=== PATIENT | male | born 1975 | race American Indian/Alaskan Native ===

== ENCOUNTER 2016-07-08 08:59 | Inpatient (IN) | payer SELFPAY ==
[2016-07-08] MEDS ORDERED: NITROSTAT SL ONE (09:14)
[2016-07-08] MEDS ORDERED: MORPHINE IV ONE (09:14)
[2016-07-08] MEDS ORDERED: LOPRESSOR IV ONE (09:14)
[2016-07-08] MEDS ORDERED: NITRO-BID 2% TP ONE (09:14)
--- NOTE | 2016-07-08 09:45 | Admit Criteria Form ---
Admission Criteria Documentation: CHEST PAIN Clinical Indications for Admission to Inpatient Care (Place 'X' for any and all applicable criteria): Admission is indicated for chest pain and ANY ONE of the following(1)(2)(3)(4)(5 ): [ ]I. Angina with acute coronary syndrome (Also use Myocardial Infarction or Angina guideline) [ ]II. Hemodynamic instability [ X]III. Angina needing acute intervention as indicated by ALL of the following (11)(12): [X]a) Unstable angina is present as indicated by angina that is ANY ONE of the following: [ ]i) New onset [ ]ii) Nocturnal [X ]iii) Prolonged at rest [ ]iv) Progressive [X ]b) Angina warrants acute intervention as indicated by ANY ONE of the following: [ ]i) Recurrent angina (e.g, not responding as previously to treatment) [ ]ii) Angina at rest or with low-level activities despite initial medical therapy [ ]iii) New or presumably new ST-segment depression on ECG [ ]iv) Signs or symptoms of heart failure (eg, dyspnea, pulmonary edema) [ ]v) New or worsening mitral regurgitation [ ]vi) Hemodynamic instability [ ]vii) Dangerous arrhythmia (eg, sustained ventricular tachycardia) [ ]viii) History of percutaneous coronary intervention within 6 months [ ]ix) History of coronary artery bypass graft surgery [X ]x) VILMA risk score of 2 or greater[A] [ ]xi) History of Diabetes(14) [ ]xii) High-risk cardiac ischemia findings on noninvasive testing (e.g, echocardiogram, treadmill testing, nuclear scan) [ ]xiii) Chronic renal insufficiency (ie, estimated GFR less than 60 mL/min/1.732m) [ ]xiv) Left ventricular ejection fraction less than 40% [ ]IV. Evidence of AZ (eg, cardiac biomarkers positive, ST-segment elevation on ECG) also use Myocardial Infarction Criteria Form. [ ]V. Pulmonary edema [ ]. Respiratory distress [ ]VII. Chest pain indicative of serious diagnosis other than coronary artery disease (eg, aortic dissection) [ ]VIII. Contraindications and/or Inappropriate clinical situations for Observational Care in patients with Chest Pain, when ANY ONE of the following is required: [ ]a) Patient with risk factor for pulmonary embolism, acute coronary syndrome and myocardial infarction (18) [ ]b) Patient with Pulmonary embolism require an average LOS of 4.3 days, therefore emergency department observation management is inappropriate 18,23 [ ]c) Painful condition/s in the elderly, have the highest rate of recidivism after emergency department observation management (10.8%) 20,21,22 [ ]d) Elevated cardiac biomarker requires intensive and exhaustive care (19) [X ]IX. General contraindications and/or Inappropriate clinical situations for Observational Care in patients with Chest Pain, when ANY ONE of the following is required: [ X]a) Prediction of prolongation of LOS based on ANY ONE of the following may be considered as a contraindication for observational care 2, 3, 4, 5, 6, 7, 8, 9, 10, 11 [ ]i) Age > 65 yrs. [X ]ii) Patient arriving by ambulance [ ]iii) Patient with high acuity [ ]iv) Patient requiring vital sign monitoring [ ]v) Patient on IV medication [ ]b) Systolic blood pressures 180mmHg 3,12 [ ]c) Patient with altered mental status including delirium and other alteration of consciousness, (3) [ ]d) Patient whose discharge disposition will be to a long-term home or rehabilitation home should not be managed in Emergency Department Observation Unit. CMS rule requires 3 days hospital stay before such placement. 3,13 [ ]e) Patient with failure to thrive due to broad array of etiologies 3,16,17 [ ]f) Inability to ambulate 3,14 Extended stay beyond goal length of stay may be needed for (1)(28): [ ]a) Specific condition diagnosed after evaluation (eg, pulmonary embolism, aortic dissection) [ ]b) Unstable angina [ ]c) Continued suspicion of acute coronary syndrome with inability to complete needed cardiac evaluation (eg, patient clinically unable to undergo stress testing) [ ]d) Myocardial infarction (Contents from ANGINA and CHEST PAIN clinical indications for admission to inpatient care have been integrated in this form) The original [employer] content created by [employer] has been revised. The portions of the content which have been revised are identified through the use of italic text or in bold, and [employer] has neither reviewed nor approved the modified material. All other unmodified content is copyright [employer]. Please see references footnoted in the original [employer] edition 2016 Admission Criteria Met: Yes
[2016-07-08 09:48] LABS: Eosinophils % (Auto) 0.8 % (0.0-4.3); Hematocrit 46.7 % (35.5-45.6); Hemoglobin 15.5 gm/dl (11.8-15.2); Mean Corpuscular HGB Conc 33 % (32-34); Mean Corpuscular Hemoglobin 30 pg (28-32); Mean Corpuscular Volume 89 fl (84-94); Platelet Count 205 K/mm3 (140-440); Red Blood Count 5.25 M/mm3 (3.65-5.03); Red Cell Distribution Width 13.9 % (13.2-15.2); White Blood Count 7.1 K/mm3 (4.5-11.0)
--- NOTE | 2016-07-08 09:51 | XRay Report ---
Single view chest: Compared to 04/17/15. History: Chest pain. Findings: Normal cardiomediastinal silhouette. Trachea is midline. No consolidation, pneumothorax or pleural effusion. Impression: No acute cardiopulmonary findings.
[2016-07-08 09:56] LABS: INR 1.05 (0.87-1.13)
[2016-07-08 09:57] LABS: Partial Thromboplastin Time 32.5 Sec. (24.2-36.6)
[2016-07-08 10:05] LABS: Creatine Kinase MB 3.2 ng/mL (0.0-4.0)
[2016-07-08 10:06] LABS: Alanine Aminotransferase 66 units/L (7-56); Albumin 4.3 g/dL (3.9-5); Albumin/Globulin Ratio 1.5 %; Alkaline Phosphatase 97 units/L (35-129); BUN/Creatinine Ratio 11.81; Bilirubin,Total 0.5 mg/dL (0.1-1.2); Blood Urea Nitrogen 13 mg/dL (9-20); Carbon Dioxide 23 mmol/L (22-30); Creatine Kinase 637 units/L (55-170); Glucose 92 mg/dL (75-100); Total Protein 7.1 g/dL (6.3-8.2)
[2016-07-08 10:07] LABS: Anion Gap 18 mmol/L; Chloride 103.4 mmol/L (98-107); Potassium 3.8 mmol/L (3.6-5.0); Sodium 141 mmol/L (137-145)
--- NOTE | 2016-07-08 10:08 | Emergency Department Report ---
ED Chest Pain HPI - General Chief Complaint: Chest Pain Stated Complaint: CHEST PAIN Time Seen by Provider: 07/08/16 09:06 Source: patient, EMS Mode of arrival: Stretcher Limitations: No Limitations - History of Present Illness MD Complaint: chest pain -: Gradual Onset: during rest, during exertion Pain Location: substernal, left chest Pain Radiation: RUE, LUE Severity: moderate Severity scale (0 -10): 8 Quality: tightness, heaviness Consistency: intermittent Improves With: nitroglycerin Worsens With: exertion re: nausea Other Symptoms: denies: cough, fever, syncope, rash, acid taste in mouth, leg swelling Treatments Prior to Arrival: aspirin, nitroglycerin Aspirin use within the Past 7 Days: (1) Yes - Related Data On Oral Contraceptives: No Previous Rx's Medication Instructions Recorded Last Taken Type Butalb/Acetaminophen/Caffeine 1 cap PO Q6HR PRN #7 cap 04/17/15 Unknown Rx [Fioricet 50-300-40 mg CAP] Lisinopril [Zestril TAB] 10 mg PO QDAY #30 tablet 05/16/15 Unknown Rx Allergies Allergy/AdvReac Type Severity Reaction Status Date / Time No Known Allergies Allergy Verified 04/17/15 04:42 VILMA score - Vilma Score Age > 65: (0) No Aspirin use within the Past 7 Days: (1) Yes 3 or more CAD Risk Factors: (1) Yes 2 or more Angina events in past 24 hrs: (1) Yes Known CAD with more than 50% Stenosis: (0) No Elevated Cardiac Markers: (0) No ST Deviation Greater than 0.5mm: (0) No VILMA Score: 3 ED Review of Systems ROS: Stated complaint: CHEST PAIN Other details as noted in HPI Constitutional: denies: chills, fever Eyes: denies: eye pain, eye discharge, vision change ENT: denies: ear pain, throat pain Respiratory: denies: cough, shortness of breath, wheezing Cardiovascular: denies: chest pain, palpitations Endocrine: no symptoms reported Gastrointestinal: denies: abdominal pain, nausea, diarrhea Genitourinary: denies: urgency, dysuria Musculoskeletal: denies: back pain, joint swelling, arthralgia Skin: denies: rash, lesions Neurological: denies: headache, weakness, paresthesias Psychiatric: denies: anxiety, depression Hematological/Lymphatic: denies: easy bleeding, easy bruising ED Past Medical Hx - Past Medical History Hx Hypertension: Yes - Social History Smoking Status: Current Every Day Smoker - Medications Home Medications: Home Medications Medication Instructions Recorded Confirmed Last Taken Type Butalb/Acetaminophen/Caffeine 1 cap PO Q6HR PRN #7 cap 04/17/15 Unknown Rx [Fioricet 50-300-40 mg CAP] Lisinopril [Zestril TAB] 10 mg PO QDAY #30 tablet 05/16/15 Unknown Rx ED Physical Exam - General Limitations: No Limitations General appearance: alert, in no apparent distress - Head Head exam: Present: atraumatic, normocephalic - ENT ENT exam: Present: mucous membranes moist - Neck Neck exam: Present: normal inspection - Respiratory Respiratory exam: Present: normal lung sounds bilaterally. Absent: respiratory distress - Cardiovascular Cardiovascular Exam: Present: regular rate, normal rhythm. Absent: systolic murmur, diastolic murmur, rubs, gallop - GI/Abdominal GI/Abdominal exam: Present: soft, normal bowel sounds - Rectal Rectal exam: Present: deferred - Extremities Exam Extremities exam: Present: normal inspection - Back Exam Back exam: Present: normal inspection - Skin Skin exam: Present: warm, dry, intact, normal color. Absent: rash ED Course Vital Signs 07/08/16 07/08/16 07/08/16 09:00 09:04 09:10 Temperature Pulse Rate 72 86 Respiratory 23 16 16 Rate Blood Pressure 148/96 Blood Pressure 158/100 [Left] O2 Sat by Pulse Oximetry 07/08/16 07/08/16 07/08/16 09:11 09:15 09:21 Temperature 98.5 F Pulse Rate 70 75 74 Respiratory 16 16 13 Rate Blood Pressure 172/111 172/111 Blood Pressure 172/111 [Left] O2 Sat by Pulse 100 100 99 Oximetry 07/08/16 07/08/16 07/08/16 09:31 09:41 09:45 Temperature Pulse Rate 79 71 70 Respiratory 11 L 13 Rate Blood Pressure 172/111 172/111 172/111 Blood Pressure [Left] O2 Sat by Pulse 100 98 Oximetry 07/08/16 09:51 Temperature Pulse Rate 71 Respiratory 28 H Rate Blood Pressure 150/102 Blood Pressure [Left] O2 Sat by Pulse 98 Oximetry ED Medical Decision Making - Lab Data Result diagrams: 07/08/16 09:30 07/08/16 09:30 - EKG Data -: EKG Interpreted by Me EKG shows normal: sinus rhythm Rate: normal - EKG Data When compared to previous EKG there are: no significant change Interpretation: no acute changes, unchanged when compared t - Medical Decision Making will admit for chest pain and moderate risk factors /recently dc from another ER , talk to hospitalist and agree with the admission. Critical care attestation.: If time is entered above; I have spent that time in minutes in the direct care of this critically ill patient, excluding procedure time. ED Disposition Clinical Impression: Hypertension, Chest pain Disposition: OP ADMITTED IP TO THIS HOSP Is pt being admited?: Yes Does the pt Need Aspirin: Yes Condition: Stable Instructions: Hypertension (ED), Chest Pain (ED) Referrals: PRIMARY CARE, [Primary Care Provider] - 3-5 Days Time of Disposition: 10:39
[2016-07-08] MEDS ORDERED: DULCOLAX PR PRN (12:46)
[2016-07-08] MEDS ORDERED: MILK OF MAGNESIA PO PRN (12:46)
[2016-07-08] MEDS ORDERED: SODIUM CHLORIDE FLUSH SYRINGE 10 ML IV PRN (12:46)
[2016-07-08] MEDS ORDERED: ZOFRAN IV PRN (12:46)
[2016-07-08] MEDS ORDERED: APRESOLINE IV PRN (12:49)
--- NOTE | 2016-07-08 12:52 | History and Physical Report ---
History of Present Illness Chief complaint: Chest pain History of present illness: Linus is a young man who presents with one-day of chest pain. He describes the pain as tightness in his chest that does not radiate anywhere to 6 out of 10 and it is intermittent and lasts a few minutes and then goes away. It is present at rest and exertion but it is worse with exertion. Denies cough denies shortness of breath denies palpitations. 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) Family history: CAD (father of a heart attack at age 50) Medications and Allergies Allergies Allergy/AdvReac Type Severity Reaction Status Date / Time No Known Allergies Allergy Verified 04/17/15 04:42 Home Medications Medication Instructions Recorded Confirmed Last Taken Type Butalb/Acetaminophen/Caffeine 1 cap PO Q6HR PRN #7 cap 04/17/15 07/08/16 Unknown Rx [Fioricet 50-300-40 mg CAP] Lisinopril [Zestril TAB] 10 mg PO QDAY #30 tablet 05/16/15 07/08/16 Unknown Rx Review of Systems All systems: negative (as stated HPI) Exam - Constitutional Vitals: Temp Pulse Resp BP Pulse Ox 98.5 F 71 28 H 150/102 98 07/08/16 09:15 07/08/16 09:51 07/08/16 09:51 07/08/16 09:51 07/08/16 09:51 General appearance: Present: no acute distress, well-nourished - EENT Eyes: Present: PERRL ENT: hearing intact, clear oral mucosa - Neck Neck: Present: supple, normal ROM - Respiratory Respiratory effort: normal Respiratory: bilateral: CTA - Cardiovascular Heart Sounds: Present: S1 & S2. Absent: rub, click - Extremities Extremities: pulses symmetrical, No edema Peripheral Pulses: within normal limits - Abdominal General gastrointestinal: Present: soft, non-tender, non-distended, normal bowel sounds Male genitourinary: Present: normal - Integumentary Integumentary: Present: clear, warm, dry - Musculoskeletal Musculoskeletal: gait normal, strength equal bilaterally - Psychiatric Psychiatric: appropriate mood/affect, intact judgment & insight - Neurologic Neurologic: CNII-XII intact, moves all extremities Results - Labs CBC & Chem 7: 07/08/16 09:30 03 09:30 Labs: Laboratory Last Values WBC 7.1 K/mm3 (4.5-11.0) 07/08/16 09:30 RBC 5.25 M/mm3 (3.65-5.03) H 07/08/16 09:30 Hgb 15.5 gm/dl (11.8-15.2) H 07/08/16 09:30 Hct 46.7 % (35.5-45.6) H 07/08/16 09:30 MCV 89 fl (84-94) 07/08/16 09:30 MCH 30 pg (28-32) 07/08/16 09:30 MCHC 33 % (32-34) 07/08/16 09:30 RDW 13.9 % (13.2-15.2) 07/08/16 09:30 Plt Count 205 K/mm3 (140-440) 07/08/16 09:30 Lymph % (Auto) 25.0 % (13.4-35.0) 07/08/16 09:30 Irion % (Auto) 12.4 % (0.0-7.3) H 07/08/16 09:30 Eos % (Auto) 0.8 % (0.0-4.3) 07/08/16 09:30 Baso % (Auto) 1.0 % (0.0-1.8) 07/08/16 09:30 Lymph # 1.8 K/mm3 (1.2-5.4) 07/08/16 09:30 Irion # 0.9 K/mm3 (0.0-0.8) H 07/08/16 09:30 Eos # 0.1 K/mm3 (0.0-0.4) 07/08/16 09:30 Baso # 0.1 K/mm3 (0.0-0.1) 07/08/16 09:30 Seg Neutrophils % 60.8 % (40.0-70.0) 07/08/16 09:30 Seg Neutrophils # 4.3 K/mm3 (1.8-7.7) 07/08/16 09:30 PT 13.6 Sec. (12.2-14.9) 07/08/16 09:30 INR 1.05 (0.87-1.13) 07/08/16 09:30 APTT 32.5 Sec. (24.2-36.6) 07/08/16 09:30 Sodium 141 mmol/L (137-145) 07/08/16 09:30 Potassium 3.8 mmol/L (3.6-5.0) 07/08/16 09:30 Chloride 103.4 mmol/L (98-107) 07/08/16 09:30 Carbon Dioxide 23 mmol/L (22-30) 07/08/16 09:30 Anion Gap 18 mmol/L 07/08/16 09:30 BUN 13 mg/dL (9-20) 07/08/16 09:30 Creatinine 1.1 mg/dL (0.8-1.5) 07/08/16 09:30 Estimated GFR > 60 ml/min 07/08/16 09:30 BUN/Creatinine Ratio 11.81 % 07/08/16 09:30 Glucose 92 mg/dL (75-100) 07/08/16 09:30 Calcium 9.0 mg/dL (8.4-10.2) 07/08/16 09:30 Total Bilirubin 0.5 mg/dL (0.1-1.2) 07/08/16 09:30 AST 33 units/L (5-40) 07/08/16 09:30 ALT 66 units/L (7-56) H 07/08/16 09:30 Alkaline Phosphatase 97 units/L (35-129) 07/08/16 09:30 Total Creatine Kinase 637 units/L (55-170) H 07/08/16 09:30 CK-MB (CK-2) 3.2 ng/mL (0.0-4.0) 07/08/16 09:30 CK-MB (CK-2) Rel Index 0.5 (0-4) 07/08/16 09:30 Troponin T < 0.010 ng/mL (0.00-0.029) 07/08/16 09:30 Total Protein 7.1 g/dL (6.3-8.2) 07/08/16 09:30 Albumin 4.3 g/dL (3.9-5) 07/08/16 09:30 Albumin/Globulin Ratio 1.5 % 07/08/16 09:30 - Imaging and Cardiology Chest x-ray: image reviewed (no acute abnormality seen) Assessment and Plan Assessment and plan: 40-year-old male with a past medical history of hypertension who presents with chest pain 1. Chest pain Given family history and risk factors, serial troponins to rule out ACS, nuclear stress test in the morning 2. Accelerated hypertension Optimize medications 3. Tobacco abuse patient was counseled >10 minutes -he was offered nicotine patch and he feels he does not need it. Plan of care discussed with patient/family: Yes
[2016-07-08] MEDS: ZESTRIL PO SCH (13:27)
[2016-07-08] MEDS: MORPHINE IV PRN ×2 (13:48→21:00)
[2016-07-08 14:24] LABS: Urine Drugs of Abuse Note Disclamer
[2016-07-08] MEDS: TYLENOL PO PRN (22:27)
[2016-07-09] MEDS ORDERED: LEXISCAN IV ONE (08:46)
[2016-07-09] MEDS ORDERED: TYLENOL ONE (08:49)
[2016-07-09] MEDS: TYLENOL PO PRN (08:54)
--- NOTE | 2016-07-09 08:58 | Discharge Summary ---
Providers - Providers Date of Admission: 07/08/16 12:46 Date of discharge: 07/09/16 Attending physician: CHINO JORGE MD Primary care physician: MANAGER [employer] Hospitalization Reason for admission: chest pain Condition: Stable Hospital course: Patient is a pleasant 40-year-old male who presents with one-day of chest pain. He describes the pain as tightness in his chest that does not radiate anywhere to 6 out of 10 and it is intermittent and lasts a few minutes and then goes away. It is present at rest and exertion but it is worse with exertion. Denies cough denies shortness of breath denies palpitations. Patient did proceed to a stress test that was negative. He didn't admit to marijuana use which was positive in his urine test. On further physical examination regular. This is some muscular spasm pain for which the patient was treated appropriately for her and is currently clinically stable for discharge. We did provide extensive counseling on the compliance of medication and wait THC abuse. Patient's blood pressure was optimized prior to discharge. Extensive counseling was also provided against tobacco use patient verbalized understanding of risk of continued tobacco use including but not limited to and cancer. Discharge diagnosis * Atypical chest pain likely costochondritis versus musculoskeletal * Hypertensive urgency * Tobacco abuse * Marijuana use Disposition: DISCHARGED TO HOME OR SELFCARE Time spent for discharge: 35 mins Core Measure Documentation - Palliative Care Palliative Care/ Comfort Measures: Not Applicable - Core Measures Any of the following diagnoses?: none - VTE Discharge Requirements Deep Vein Thrombosis/Pulmonary Embolism Present on Admission: No Exam - Physical Exam Narrative exam: VITAL SIGNS: Reviewed. GENERAL: The patient appeared well nourished and normally developed. Vital signs as documented. HEAD: No signs of head trauma. EYES: Pupils are equal. Extraocular motions intact. EARS: Hearing grossly intact. MOUTH: Oropharynx is normal. NECK: No adenopathy, no JVD. CHEST: Chest with clear breath sounds bilaterally. No wheezes, rales, or rhonchi. CARDIAC: Regular rate and rhythm. S1 and S2, without murmurs, gallops, or rubs. VASCULAR: No Edema. Peripheral pulses normal and equal in all extremities. ABDOMEN: Soft, without detectable tenderness. No sign of distention. No rebound or guarding, and no masses palpated. Bowel Sounds normal. MUSCULOSKELETAL: Good range of motion of all major joints. Extremities without clubbing, cyanosis or edema. NEUROLOGIC EXAM: Alert and oriented x 3. No focal sensory or strength deficits. Speech normal. Follows commands. PSYCHIATRIC: Mood normal. SKIN: No rash or lesions. - Constitutional Vitals: Temp Pulse Resp BP Pulse Ox 98.4 F 75 18 153/98 99 07/09/16 04:00 07/09/16 04:00 07/09/16 04:00 07/09/16 04:00 07/09/16 04:00 Plan Activity: advance as tolerated, fall precautions Diet: low fat Special Instructions: smoking cessation Follow up with: PRIMARY CARE, [Primary Care Provider] - 3-5 Days
[2016-07-09] MEDS ORDERED: ECOTRIN PO SCH (10:00)
[2016-07-09] MEDS ORDERED: FLUARIX QUAD 2016-2017(36 MOS+) IM ONE (12:00)
[2016-07-09] MEDS: ZESTRIL PO SCH (13:00)
[2016-07-09 13:24] VITALS: BP 181/99
--- NOTE | 2016-07-09 21:53 | Treadmill Report ---
INDICATION: Chest pain. ORDERING PHYSICIAN: Zach Vitale MD FINDINGS: There is no scintigraphic evidence of myocardial ischemia. The left ventricle is normal in size. There is normal wall motion and wall thickening on gated imaging. The left ventricular ejection fraction was measured at 49%. CONCLUSION: 1. No scintigraphic evidence of myocardial ischemia. 2. Normal left ventricular size and wall motion. 3. Left ventricular ejection fraction measured at 49%. 4. This is a low risk myocardial perfusion study associated with 1 year mortality of less than 1%. JOB# [id number] IVAN/CIRILO
== END 2016-07-09 16:50 | disposition home or self-care (01) | DRG 313 ==
LOC: ED 08:59 → 4A 12:46 → EEVIPCON 12:46 → 4A 14:26
PROVIDERS: ADMIT Internal Medicine; ATTEND Internal Medicine
DX: R07.9 Chest pain, unspecified (principal); I10 Essential (primary) hypertension; F17.210 Nicotine dependence, cigarettes, uncomplicated; G43.909 Migraine, unspecified, not intractable, without status migrainosus; Z79.899 Other long term (current) drug therapy; Z82.49 Family history of ischemic heart disease and other diseases of the circulatory system; Z71.6 Tobacco abuse counseling
CPT/HCPCS: 36415; 71010; 78452; 80053; 80307; 82550; 82553; 84484; 85025; 85610; 85730; 90686; 93005; 93010; 93017; A9502; J0360; J2270; J2785

== ENCOUNTER 2016-07-20 14:36 | Emergency (ER) | payer SELFPAY ==
[2016-07-20] MEDS ORDERED: ZESTRIL PO ONE (18:16)
[2016-07-20] MEDS ORDERED: PERCOCET 5/325 PO ONE (18:16)
--- NOTE | 2016-07-20 18:22 | Emergency Department Report ---
ED General Adult HPI - General Chief complaint: Recheck/Abnormal Lab/Rx Stated complaint: ELEVATED BP/MED REFILL Time Seen by Provider: 07/20/16 18:06 Source: patient Mode of arrival: Ambulatory Limitations: No Limitations - History of Present Illness Initial comments: PT state he is in the process of moving. PT states his packed all of his medication. PT states he can unpack is medication in the next 2-3 weeks. PT states he is out of Lisinopril 20 mg q day, Flexeril, Naprosyn, and Percocet 5/ 325mg. PT states he is on those medications for his right rotator cuff tear from work injury. PT states he is in Physical Therapy at [facility] for his shoulder. MD Complaint: medication refill -: Gradual, days(s) Location: upper extremity (R shoulder ) Severity scale (0 -10): 10 Improves with: medication (percocet ) Worsens with: movement Associated Symptoms: headaches. denies: chest pain, nausea/vomiting, syncope Treatments Prior to Arrival: Aspirin - Related Data Previous Rx's Medication Instructions Recorded Last Taken Type Butalb/Acetaminophen/Caffeine 1 cap PO Q6HR PRN #7 cap 04/17/15 Unknown Rx [Fioricet 50-300-40 mg CAP] Cyclobenzaprine HCl [Flexeril 5 MG 5 mg PO TID PRN #12 tab 07/20/16 Unknown Rx TAB] Lisinopril [Zestril TAB] 20 mg PO QDAY #30 tablet 07/20/16 Unknown Rx Allergies Allergy/AdvReac Type Severity Reaction Status Date / Time No Known Allergies Allergy Verified 07/20/16 15:47 ED Review of Systems ROS: Stated complaint: ELEVATED BP/MED REFILL Other details as noted in HPI Comment: All other systems reviewed and negative Musculoskeletal: as per HPI Neurological: headache ED Past Medical Hx - Past Medical History Hx Hypertension: Yes - Surgical History Past Surgical History?: No - Social History Smoking Status: Current Every Day Smoker Substance Use Type: Prescribed - Medications Home Medications: Home Medications Medication Instructions Recorded Confirmed Last Taken Type Butalb/Acetaminophen/Caffeine 1 cap PO Q6HR PRN #7 cap 15 07/08/16 Unknown Rx [Fioricet 50-300-40 mg CAP] Cyclobenzaprine HCl [Flexeril 5 MG 5 mg PO TID PRN #12 tab 07/20/16 Unknown Rx TAB] Lisinopril [Zestril TAB] 20 mg PO QDAY #30 tablet 07/20/16 Unknown Rx ED Physical Exam - General Limitations: No Limitations General appearance: alert, in no apparent distress - Head Head exam: Present: atraumatic, normocephalic - Eye Eye exam: Present: normal appearance - ENT ENT exam: Present: normal exam - Neck Neck exam: Present: normal inspection, tenderness (R trapezius tenderness ) - Respiratory Respiratory exam: Present: normal lung sounds bilaterally, respiratory distress. Absent: chest wall tenderness - Cardiovascular Cardiovascular Exam: Present: regular rate, normal rhythm, normal heart sounds - Extremities Exam Extremities exam: Present: normal inspection, tenderness (R ant shoulder ) - Back Exam Back exam: Present: normal inspection, full ROM. Absent: CVA tenderness (R), CVA tenderness (L) - Neurological Exam Neurological exam: Present: alert, oriented X3 - Psychiatric Psychiatric exam: Present: normal affect, normal mood - Skin Skin exam: Present: warm, dry, intact ED Course Vital Signs 07/20/16 07/20/16 15:48 18:29 Temperature 98.6 F Pulse Rate 80 64 Respiratory 18 Rate Blood Pressure 151/98 154/106 O2 Sat by Pulse 99 Oximetry - Reevaluation(s) Reevaluation #1: 07/20/16 18:25 PT aware Rx for narcotics will not be given for his chronic pain. PT advised to find his medications. PT also advised to follow up with the MD who has been prescribing his narcotics. - Pulse Oximetry Interpretation Digit-Finger Initial Pulse Oximetry Readin Actions Taken: none ED Medical Decision Making - Differential Diagnosis htn, medication refill, shoulder pain Critical care attestation.: If time is entered above; I have spent that time in minutes in the direct care of this critically ill patient, excluding procedure time. ED Disposition Clinical Impression: Chronic right shoulder pain, Medication refill Hypertension Qualifiers: Hypertension type: essential hypertension Qualified Code(s): I10 - Essential ( primary) hypertension Disposition: DISCHARGED TO HOME OR SELFCARE Is pt being admited?: No Does the pt Need Aspirin: No Condition: Stable Instructions: Hypertension (ED) Additional Instructions: No driving or ETOH after taking flexeril Follow up with PCP in 1 week - recheck your bp at follow up Take OTC Aleve as needed for pain Prescriptions: Cyclobenzaprine HCl [Flexeril 5 MG TAB] 5 mg PO TID PRN #12 tab PRN Reason: Muscle Spasm Lisinopril [Zestril TAB] 20 mg PO QDAY #30 tablet Referrals: [facility] [Outside] - 3-5 Days PRIMARY CARE, [Primary Care Provider] - 3-5 Days Time of Disposition: 18:28
[2016-07-20 18:30] VITALS: BP 154/106
== END 2016-07-20 18:35 | disposition home or self-care (01) ==
LOC: ED 14:36
DX: M25.511 Pain in right shoulder (principal); G89.29 Other chronic pain; Z76.0 Encounter for issue of repeat prescription; I10 Essential (primary) hypertension; F17.200 Nicotine dependence, unspecified, uncomplicated
CPT/HCPCS: 99282

== ENCOUNTER 2016-07-28 13:02 | Emergency (ER) | payer SELFPAY ==
[2016-07-28 14:13] LABS: Basophils % (Auto) 0.9 % (0.0-1.8); Eosinophils % (Auto) 1.8 % (0.0-4.3); Hematocrit 45.8 % (35.5-45.6); Hemoglobin 15.2 gm/dl (11.8-15.2); Mean Corpuscular HGB Conc 33 % (32-34); Mean Corpuscular Hemoglobin 29 pg (28-32); Mean Corpuscular Volume 89 fl (84-94); Platelet Count 177 K/mm3 (140-440); Red Blood Count 5.17 M/mm3 (3.65-5.03); Red Cell Distribution Width 13.6 % (13.2-15.2); White Blood Count 6.4 K/mm3 (4.5-11.0)
[2016-07-28 14:25] LABS: Anion Gap 15 mmol/L; BUN/Creatinine Ratio 14.54; Blood Urea Nitrogen 16 mg/dL (9-20); Calcium 8.8 mg/dL (8.4-10.2); Carbon Dioxide 24 mmol/L (22-30); Chloride 107.7 mmol/L (98-107); Glucose 94 mg/dL (75-100); Sodium 143 mmol/L (137-145)
[2016-07-28] MEDS ORDERED: CATAPRES PO ONE (23:10)
[2016-07-28 23:20] VITALS: BP 190/130
--- NOTE | 2016-07-28 23:50 | Emergency Department Report ---
ED Chest Pain HPI - General Chief Complaint: Chest Pain Stated Complaint: MEDS REFILL/FLUTTERING HEART BEAT Time Seen by Provider: 07/28/16 22:52 Source: patient Mode of arrival: Ambulatory Limitations: No Limitations - History of Present Illness Initial Comments: 40 yo male with a past medical history hypertension presents to the hospital complaints of intermittent left-sided chest pain and continued uncontrolled blood pressure. Patient has episodes of left-sided heart fluttering associated with shortness of breath. Episodes last several seconds and spontaneously resolved. Patient had one episode last night and one this morning and denies any repeat episodes. No aggravating or alleviating factors reported. Patient also expresses concern that his blood pressure is still elevated despite being compliant with lisinopril 20 mg daily. Patient denies calf tenderness, edema, recent travel, history of PE/DVT, or pleuritic chest pain. Patient was recently admitted here July 08 until July 09 for chest pain and had a normal exercise stress test. He has not followed up with primary care doctor since discharge to the lack of insurance. Requesting blood pressure medication adjustment. Patient also presented to the ER on July 20 with request for med refill. - Related Data Previous Rx's Medication Instructions Recorded Last Taken Type Butalb/Acetaminophen/Caffeine 1 cap PO Q6HR PRN #7 cap 04/17/15 07/28/16 Rx [Fioricet 50-300-40 mg CAP] Cyclobenzaprine HCl [Flexeril 5 MG 5 mg PO TID PRN #12 tab 07/20/16 07/28/16 Rx TAB] Lisinopril [Zestril TAB] 20 mg PO QDAY #30 tablet 07/20/16 07/28/16 Rx Allergies Allergy/AdvReac Type Severity Reaction Status Date / Time No Known Allergies Allergy Verified 07/20/16 15:47 VILMA score - Vilma Score Age > 65: (0) No Aspirin use within the Past 7 Days: (1) Yes 3 or more CAD Risk Factors: (1) Yes 2 or more Angina events in past 24 hrs: (1) Yes Known CAD with more than 50% Stenosis: (0) No Elevated Cardiac Markers: (0) No ST Deviation Greater than 0.5mm: (0) No VILMA Score: 3 ED Review of Systems ROS: Stated complaint: MEDS REFILL/FLUTTERING HEART BEAT Other details as noted in HPI Comment: All other systems reviewed and negative Other: Constitutional: No fevers chills Eyes: No eye pain visual changes ENT: No ear pain or throat pain Neck: Denies pain Respiratory: Denies cough wheezing Cardiovascular: Per HPI GI: Denies abdominal pain, nausea, vomiting, diarrhea : Denies dysuria Musculoskeletal: Denies back pain Skin: Denies rash, lesions, erythema Neurologic: Denies headache, numbness, weakness Psychiatric: Denies suicidal ideation, hallucinations ED Past Medical Hx - Past Medical History Hx Hypertension: Yes - Surgical History Past Surgical History?: No - Social History Smoking Status: Never Smoker Substance Use Type: Alcohol - Medications Home Medications: Home Medications Medication Instructions Recorded Confirmed Last Taken Type Butalb/Acetaminophen/Caffeine 1 cap PO Q6HR PRN #7 cap 04/17/15 07/28/16 Rx [Fioricet 50-300-40 mg CAP] Cyclobenzaprine HCl [Flexeril 5 MG 5 mg PO TID PRN #12 tab 07/20/16 07/28/16 Rx TAB] Lisinopril [Zestril TAB] 20 mg PO QDAY #30 tablet 07/20/16 07/28/16 07/28/16 Rx ED Physical Exam - General Limitations: No Limitations - Other Other exam information: General: No limitations, patient is alert in no acute distress Head exam: Atraumatic, normocephalic Eyes exam: Normal appearance, pupils equal reactive to light, extraocular movements intact ENT: Moist mucous membrane, normal oropharynx Neck exam: Normal inspection, full range of motion, no meningismus nontender Respiratory exam: Clear to auscultation bilateral, no wheezes, rales, crackles. Chest wall nontender Cardiovascular: Normal rate and rhythm, normal heart sounds Abdomen: Soft, nondistended, and nontender, with normal bowel sounds, no rebound, or guarding Extremity: Full range of motion normal inspection no deformity and no calf tenderness or edema Back: Normal Inspection, full range of motion, no tenderness Neurologic: Alert, oriented x3, cranial nerves intact, no motor or sensory deficit Psychiatric: normal affect, normal mood Skin: Warm, dry, intact ED Course Vital Signs 07/28/16 07/28/16 07/28/16 13:46 21:36 21:40 Temperature 98.8 F Pulse Rate 78 66 63 Respiratory 16 10 L 24 Rate Blood Pressure 129/102 173/116 Blood Pressure [Right] O2 Sat by Pulse 98 99 99 Oximetry 07/28/16 07/28/16 07/28/16 21:44 21:50 22:00 Temperature Pulse Rate 60 62 Respiratory 21 18 Rate Blood Pressure 175/114 167/117 Blood Pressure 176/111 [Right] O2 Sat by Pulse 99 97 Oximetry 07/28/16 07/28/16 07/28/16 22:10 22:20 22:30 Temperature Pulse Rate 63 81 63 Respiratory 24 16 14 Rate Blood Pressure 167/117 170/118 178/113 Blood Pressure [Right] O2 Sat by Pulse 99 100 100 Oximetry 07/28/16 07/28/16 07/28/16 22:40 22:50 23:00 Temperature Pulse Rate 64 67 63 Respiratory 22 16 23 Rate Blood Pressure 178/113 171/108 171/108 Blood Pressure [Right] O2 Sat by Pulse 98 98 99 Oximetry 07/28/16 07/28/16 23:10 23:19 Temperature Pulse Rate 94 H 94 H Respiratory 17 Rate Blood Pressure 182/71 190/130 Blood Pressure [Right] O2 Sat by Pulse 97 Oximetry - Reevaluation(s) Reevaluation #1: 07/28/16 23:48 I was informed by RN at this time the patient eloped. When I intially spoke to patient and explained the process that he will get a d-dimer which was drawn shortly after my evaluation, if elevated he will need a CT angiogram chest, if negative we will send him home when his blood pressure improves. Patient received clonidine 0.1 mg but did not stay long enough for repeat blood pressure measurement. We also discussed that upon discharge I will be providing information for [facility] since he has been unable to follow-up due to lack of insurance. Patient and significant other at the bedside seemed agreeable with the plan. Howver they left prior to completion of treatment and disposition. D-dimer is pending. Apparently patient and his significant other were arguing prior to leaving the hospital Reevaluation #2: 07/28/16 23:56 D-dimer is returned at this time. D-dimer is elevated 350s. I recommend patient get a CT angiogram of the chest. I attempted to call the number on record [phone] however, the number does not belong to the patient. Patient mentioned during my evaluation that he is not currently working although he is employed since he has not officially gotten a slip saying that he is not employed anymore. For this reason I will instruct charge nurse to send a notice to the home on record that patient needs to return to the hospital for CT angiogram chest to rule out PE given elevated d-dimer level. ED Medical Decision Making - Lab Data Result diagrams: 07/28/16 13:58 07/28/16 13:58 Lab Results 07/28/16 07/28/16 07/28/16 Range/Units 13:58 13:58 18:36 WBC 6.4 (4.5-11.0) K/mm3 RBC 5.17 H (3.65-5.03) M/mm3 Hgb 15.2 (11.8-15.2) gm/dl Hct 45.8 H (35.5-45.6) % MCV 89 (84-94) fl MCH 29 (28-32) pg MCHC 33 (32-34) % RDW 13.6 (13.2-15.2) % Plt Count 177 (140-440) K/mm3 Lymph % (Auto) 33.6 (13.4-35.0) % Hart % (Auto) 11.0 H (0.0-7.3) % Eos % (Auto) 1.8 (0.0-4.3) % Baso % (Auto) 0.9 (0.0-1.8) % Lymph # 2.1 (1.2-5.4) K/mm3 Hart # 0.7 (0.0-0.8) K/mm3 Eos # 0.1 (0.0-0.4) K/mm3 Baso # 0.1 (0.0-0.1) K/mm3 Seg Neutrophils % 52.7 (40.0-70.0) % Seg Neutrophils # 3.4 (1.8-7.7) K/mm3 D-Dimer (0-234) ng/mlDDU Sodium 143 (137-145) mmol/L Potassium 4.0 (3.6-5.0) mmol/L Chloride 107.7 H (98-107) mmol/L Carbon Dioxide 24 (22-30) mmol/L Anion Gap 15 mmol/L BUN 16 (9-20) mg/dL Creatinine 1.1 (0.8-1.5) mg/dL Estimated GFR > 60 ml/min BUN/Creatinine Ratio 14.54 % Glucose 94 (75-100) mg/dL Calcium 8.8 (8.4-10.2) mg/dL Troponin T < 0.010 < 0.010 (0.00-0.029) ng/mL 07/28/16 Range/Units 23:15 WBC (4.5-11.0) K/mm3 RBC (3.65-5.03) M/mm3 Hgb (11.8-15.2) gm/dl Hct (35.5-45.6) % MCV (84-94) fl MCH (28-32) pg MCHC (32-34) % RDW (13.2-15.2) % Plt Count (140-440) K/mm3 Lymph % (Auto) (13.4-35.0) % Hart % (Auto) (0.0-7.3) % Eos % (Auto) (0.0-4.3) % Baso % (Auto) (0.0-1.8) % Lymph # (1.2-5.4) K/mm3 Hart # (0.0-0.8) K/mm3 Eos # (0.0-0.4) K/mm3 Baso # (0.0-0.1) K/mm3 Seg Neutrophils % (40.0-70.0) % Seg Neutrophils # (1.8-7.7) K/mm3 D-Dimer 353.33 H (0-234) ng/mlDDU Sodium (137-145) mmol/L Potassium (3.6-5.0) mmol/L Chloride (98-107) mmol/L Carbon Dioxide (22-30) mmol/L Anion Gap mmol/L BUN (9-20) mg/dL Creatinine (0.8-1.5) mg/dL Estimated GFR ml/min BUN/Creatinine Ratio % Glucose (75-100) mg/dL Calcium (8.4-10.2) mg/dL Troponin T (0.00-0.029) ng/mL - EKG Data -: EKG Interpreted by Me (sinus rhythm rate 76 with sinus arrhythmia) - EKG Data When compared to previous EKG there are: no significant change - Medical Decision Making Patient left prior to completion of the ER evaluation. No signs of acute [place] during ED evaluation in pain appears to be atyhpical D-dimer is elevated 350s. I recommend patient get a CT angiogram of the chest. I attempted to call the number on record [phone] however, the number does not belong to the patient. Patient mentioned during my evaluation that he is not currently working although he is employed since he has not officially gotten a slip saying that he is not employed anymore. For this reason I will instruct charge nurse to send a notice to the home on record that patient needs to return to the hospital for CT angiogram chest to rule out PE given elevated d -dimer level. - Differential Diagnosis atypical chest pain, PE, stable angina, palpitations, arrhythmia Critical Care Time: No Critical care attestation.: If time is entered above; I have spent that time in minutes in the direct care of this critically ill patient, excluding procedure time. ED Disposition Clinical Impression: Chest pain, Elevated d-dimer, Uncontrolled hypertension Disposition: ELOPED Is pt being admited?: No Condition: Stable Time of Disposition: 00:00
--- NOTE | 2016-07-29 00:04 | ED Elopement Review ---
ED Pt Elopement review - Results review Lab results: Laboratory Tests 07/28/16 07/28/16 07/28/16 13:58 13:58 18:36 WBC 6.4 RBC 5.17 H Hgb 15.2 Hct 45.8 H MCV 89 MCH 29 MCHC 33 RDW 13.6 Plt Count 177 Lymph % (Auto) 33.6 Trinity % (Auto) 11.0 H Eos % (Auto) 1.8 Baso % (Auto) 0.9 Lymph # 2.1 Trinity # 0.7 Eos # 0.1 Baso # 0.1 Seg Neutrophils % 52.7 Seg Neutrophils # 3.4 D-Dimer Sodium 143 Potassium 4.0 Chloride 107.7 H Carbon Dioxide 24 Anion Gap 15 BUN 16 Creatinine 1.1 Estimated GFR > 60 BUN/Creatinine Ratio 14.54 Glucose 94 Calcium 8.8 Troponin T < 0.010 < 0.010 07/28/16 23:15 WBC RBC Hgb Hct MCV MCH MCHC RDW Plt Count Lymph % (Auto) Trinity % (Auto) Eos % (Auto) Baso % (Auto) Lymph # Trinity # Eos # Baso # Seg Neutrophils % Seg Neutrophils # D-Dimer 353.33 H Sodium Potassium Chloride Carbon Dioxide Anion Gap BUN Creatinine Estimated GFR BUN/Creatinine Ratio Glucose Calcium Troponin T - Call Back decision Pt Call Back Decision: Call pt to return to ED APPLE (pt needs CT angiogram for elevated ddimer)
== END 2016-07-28 23:39 | disposition left against medical advice (07) ==
LOC: ED 13:02
DX: I10 Essential (primary) hypertension (principal); R07.9 Chest pain, unspecified; R79.1 Abnormal coagulation profile
CPT/HCPCS: 36415; 80048; 84484; 85025; 85379; 93005; 93010; 99284

== ENCOUNTER 2017-03-18 17:27 | Emergency (ER) | payer SELFPAY ==
[2017-03-18] MEDS ORDERED: ZESTRIL PO ONE (17:51)
--- NOTE | 2017-03-18 18:54 | Emergency Department Report ---
ED Medical Clearance HPI - General Chief complaint: Medical Clearance Stated complaint: HYPERTENION Time Seen by Provider: 03/18/17 17:50 Source: patient Mode of arrival: Ambulatory Home medications: Previous Rx's Medication Instructions Recorded Last Taken Type Butalb/Acetaminophen/Caffeine 1 cap PO Q6HR PRN #7 cap 04/17/15 07/28/16 Rx [Fioricet 50-300-40 mg CAP] Cyclobenzaprine HCl [Flexeril 5 MG 5 mg PO TID PRN #12 tab 07/20/16 07/28/16 Rx TAB] Lisinopril [Zestril TAB] 20 mg PO QDAY #30 tablet 07/20/16 07/28/16 Rx Allergies/Adverse reactions: Allergies Allergy/AdvReac Type Severity Reaction Status Date / Time No Known Allergies Allergy Verified 07/20/16 15:47 ED Review of Systems ROS: Stated complaint: HYPERTENION Other details as noted in HPI ED Past Medical Hx - Past Medical History Hx Hypertension: Yes - Surgical History Past Surgical History?: No - Social History Smoking Status: Current Every Day Smoker Substance Use Type: None - Medications Home Medications: Home Medications Medication Instructions Recorded Confirmed Last Taken Type Butalb/Acetaminophen/Caffeine 1 cap PO Q6HR PRN #7 cap 04/17/15 07/28/16 Rx [Fioricet 50-300-40 mg CAP] Cyclobenzaprine HCl [Flexeril 5 MG 5 mg PO TID PRN #12 tab 07/20/16 07/28/16 Rx TAB] Lisinopril [Zestril TAB] 20 mg PO QDAY #30 tablet 07/20/16 07/28/16 07/28/16 Rx ED Physical Exam - General Limitations: No Limitations ED Course Vital Signs 03/18/17 17:41 Temperature 98.6 F Pulse Rate 90 Respiratory 20 Rate Blood Pressure 142/113 O2 Sat by Pulse 98 Oximetry ED Disposition Condition: Stable
--- NOTE | 2017-03-18 18:59 | Emergency Department Report ---
Chief Complaint: Medical Clearance Stated Complaint: HYPERTENION Time Seen by Provider: 03/18/17 17:50 - HPI History of Present Illness: 41-year-old male past medical history hypertension, smoker presents with complaint of elevated blood pressure today. Patient states he took his blood pressure and it was over 140 systolic and over 100 diastolic and had episode of approximately 8-10 minutes of headache this morning. Patient is awake alert and oriented 3 denies any facial paresthesias upper or lower extremity paresthesias denies nausea or vomiting, shortness of breath, palpitations, chest pain or palpitations. - ROS Review of Systems: History of hypertension and erectile dysfunction - Exam Vital Signs: Vital Signs 03/18/17 03/18/17 03/18/17 17:41 17:54 17:55 Temperature 98.6 F Pulse Rate 90 90 83 Respiratory 20 Rate Blood Pressure 142/113 142/114 171/109 O2 Sat by Pulse 98 97 Oximetry Physical Exam: Awake alert and oriented 3 does not appear to be in acute distress, heart S1- S2 lungs clear to auscultation bilaterally, strength 5 over 5 upper and lower extremities MSE screening note: Focused history and physical exam performed. Due to findings the following was ordered: Screening Assessment/Plan/Differential Dx: Hypertension 1- This initial assessment/diagnostic orders/clinical plan/ treatment(s) is/are subject to change based on pt's health status, clinical progression and re- assessment by fellow clinical providers in the ED. Further treatment and workup at subsequent clinical provers discretion. Patient/guardians urged not to elope from ED as their condition may be serious if not clinically assessed and managed. 2-CBC, BMP, EKG, chest x-ray, troponin, UA is screening for hypertension. Patient was symptomatic earlier but is asymptomatic now ED Disposition for MSE Condition: Stable Referrals: PRIMARY CARE, [Primary Care Provider] - 3-5 Days
[2017-03-18 19:39] LABS: Bilirubin,Urine NEG (Negative); Blood,Urine NEG (Negative); Ketones,Urine TR mg/dL (Negative); Leukocyte Esterase,Urine NEG (Negative); Mucus,Urine 2+ /HPF; Nitrite,Urine NEG (Negative)
[2017-03-18 19:44] LABS: Basophils % (Auto) 0.9 % (0.0-1.8); Eosinophils % (Auto) 2.2 % (0.0-4.3); Hematocrit 42.6 % (35.5-45.6); Mean Corpuscular HGB Conc 33 % (32-34); Mean Corpuscular Hemoglobin 30 pg (28-32); Mean Corpuscular Volume 90 fl (84-94); Platelet Count 168 K/mm3 (140-440); Red Blood Count 4.74 M/mm3 (3.65-5.03); Red Cell Distribution Width 13.9 % (13.2-15.2); White Blood Count 5.9 K/mm3 (4.5-11.0)
[2017-03-18 20:02] LABS: Anion Gap 17 mmol/L; BUN/Creatinine Ratio 17; Blood Urea Nitrogen 17 mg/dL (9-20); Calcium 8.4 mg/dL (8.4-10.2); Carbon Dioxide 26 mmol/L (22-30); Chloride 104.1 mmol/L (98-107); Glucose 59 mg/dL (75-100); Potassium 3.7 mmol/L (3.6-5.0); Sodium 143 mmol/L (137-145)
[2017-03-18] MEDS ORDERED: CATAPRES PO ONE (22:03)
--- NOTE | 2017-03-18 23:15 | Emergency Department Report ---
HPI - General Chief Complaint: Medical Clearance Time Seen by Provider: 03/18/17 21:00 - HPI HPI: 41-year-old male past medical history hypertension, smoker presents with complaint of elevated blood pressure today. Patient states he took his blood pressure and it was over 140 systolic and over 100 diastolic and had episode of approximately 8-10 minutes of headache this morning. Patient is awake alert and oriented 3 denies any facial paresthesias upper or lower extremity paresthesias denies nausea or vomiting, shortness of breath, palpitations, chest pain or palpitations. Patient said patient reports headache was episodic and he's had this in the past with elevated blood pressure. Patient is not having any headache currently. He was screened by provider and worked up for CT scan and fears other lab work. Patient came to the hospital to have his blood pressure medication renewed which are lisinopril, amlodipine and hydrochlorothiazide. He said he's been out of his medication for 2 weeks. Patient said that he does not have a primary care physician at present. Patient has been here in the past for medication refill. ED Past Medical Hx - Past Medical History Previous Medical History?: Yes Hx Hypertension: Yes - Surgical History Past Surgical History?: No - Family History Family history: hypertension - Social History Smoking Status: Current Every Day Smoker Substance Use Type: None - Medications Home Medications: Home Medications Medication Instructions Recorded Confirmed Last Taken Type Butalb/Acetaminophen/Caffeine 1 cap PO Q6HR PRN #7 cap 04/17/15 07/28/16 Rx [Fioricet 50-300-40 mg CAP] Cyclobenzaprine HCl [Flexeril 5 MG 5 mg PO TID PRN #12 tab 07/20/16 07/28/16 Rx TAB] Hydrochlorothiazide [HCTZ] 25 mg PO QDAY 30 Days #30 tablet 03/19/17 Unknown Rx Lisinopril [Zestril TAB] 20 mg PO QDAY #30 tablet 03/19/17 Unknown Rx amLODIPine [Norvasc] 10 mg PO DAILY 30 Days #30 tab 03/19/17 Unknown Rx ED Review of Systems ROS: Stated complaint: HYPERTENION Other details as noted in HPI Comment: All other systems reviewed and negative Constitutional: no symptoms reported Eyes: denies: eye pain, vision change ENT: denies: ear pain, throat pain Respiratory: no symptoms reported Cardiovascular: denies: chest pain, palpitations, dyspnea on exertion, edema, syncope, paroxysmal nocturnal dyspnea Musculoskeletal: denies: back pain, joint swelling, arthralgia, myalgia Neurological: headache. denies: weakness, numbness, paresthesias, confusion, abnormal gait, vertigo Physical Exam - Physical Exam Vital Signs: Vital Signs 03/18/17 03/18/17 03/18/17 17:41 17:54 17:55 Temperature 98.6 F Pulse Rate 90 90 83 Respiratory 20 Rate Blood Pressure 142/113 142/114 171/109 O2 Sat by Pulse 98 97 Oximetry General: This is a 41-year-old male well-nourished ,well-developed and nontoxic in appearance Physical Exam: Head: Normocephalic, atraumatic, no abrasion, no bruising and no contusion. Eyes: Biateral pupils equal and reactive to light, bilateral EOM intact.. Bilateral conjunctival and sclera without injection, normal accommodation. No nystagmus Ears: Bilateral TMs pearly weston, bilateral nasal mucosa normal without any drainage. No maxillary or frontal sinus tenderness. No mastoid bone tenderness. Bilateral tract is nontender to palpate Mouth: Moist, no pharyngeal exudate or erythema. Uvula is midline and tongue is normal. Oral airways patent. P Neck: Supple, No Cervical adenopathy, full range of motion and no C-spine tenderness. No swelling or tracheal deviation normal reflexes. No carotid bruit Cardiovascular: S1, S2. Regular rate and rhythm. No murmur. Capillary refill is less then 3 seconds. Lungs: Clear to auscultate bilaterally. No rhonchi, wheezes or rales. No chest wall tenderness MSK: Strength 5/5 in all extremities. No joint deformity or crepitus. Normal inspection. Full range of motion to all extremities Abdomen: Nontender to palpate, soft. No guarding or rebound tenderness. Normal bowel sounds in all quadrants. No hernia, bruit, moderate mass. Extremities: No clubbing, cyanosis or edema. +2 pulses. No neurovascular compromise Neurological: GCS at 15, Pt is alert and oriented 3 speech is clear period. 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 Normal gait. Negative Romberg and no pronator drift. Normal Reflexes. No motor or sensory deficit Back: No vertebral tenderness, no paraspinal tenderness. No saddle anesthesia. Normal inspection. Full range of motion. Ambulates without any difficulties. Cardiovascular: S1, S2. Regular rate and rhythm. No murmur. Capillary refill is less then 3 seconds. Lungs: Clear to auscultate bilaterally. No rhonchi, wheezes or rales. No chest wall tenderness Skin: Clean, dry and intact. No rash or lesions. ED Course Vital Signs 03/18/17 03/18/17 03/18/17 17:41 17:54 17:55 Temperature 98.6 F Pulse Rate 90 90 83 Respiratory 20 Rate Blood Pressure 142/113 142/114 171/109 O2 Sat by Pulse 98 97 Oximetry - Reevaluation(s) Reevaluation #1: 03/19/17 21:00 Patient stable and in no acute distress. Normal neurological exam. Still awaiting in head CT because provider ordered CT of the head because patient was complaining of headache when he came's then with elevated blood pressure. Patient is stable and does not have a headache at present. Reevaluation #2: 03/19/17 23:00 No change in neurological status. Still awaiting head CT result. Patient other lab works are stable and his EKG is stable. Patient was given lisinopril initially which did not take his blood pressure down and so he was given clonidine. Reevaluation #3: 03/19/17 01:47 Blood pressure is still elevated but it's better than initial blood pressure and patient is fine without any headache or other symptoms. CT of the head was normal. ED Medical Decision Making - Lab Data Result diagrams: 03/18/17 19:14 03/18/17 19:14 Lab Results 03/18/17 03/18/17 03/18/17 Range/Units 19:00 19:14 19:14 WBC 5.9 (4.5-11.0) K/mm3 RBC 4.74 (3.65-5.03) M/mm3 Hgb 14.0 (11.8-15.2) gm/dl Hct 42.6 (35.5-45.6) % MCV 90 (84-94) fl MCH 30 (28-32) pg MCHC 33 (32-34) % RDW 13.9 (13.2-15.2) % Plt Count 168 (140-440) K/mm3 Lymph % (Auto) 43.8 H (13.4-35.0) % [place] % (Auto) 11.5 H (0.0-7.3) % Eos % (Auto) 2.2 (0.0-4.3) % Baso % (Auto) 0.9 (0.0-1.8) % Lymph # 2.6 (1.2-5.4) K/mm3 [place] # 0.7 (0.0-0.8) K/mm3 Eos # 0.1 (0.0-0.4) K/mm3 Baso # 0.1 (0.0-0.1) K/mm3 Seg Neutrophils % 41.6 (40.0-70.0) % Seg Neutrophils # 2.5 (1.8-7.7) K/mm3 Sodium 143 (137-145) mmol/L Potassium 3.7 (3.6-5.0) mmol/L Chloride 104.1 (98-107) mmol/L Carbon Dioxide 26 (22-30) mmol/L Anion Gap 17 mmol/L BUN 17 (9-20) mg/dL Creatinine 1.0 (0.8-1.5) mg/dL Estimated GFR > 60 ml/min BUN/Creatinine Ratio 17 % Glucose 59 L (75-100) mg/dL Calcium 8.4 (8.4-10.2) mg/dL Troponin T < 0.010 (0.00-0.029) ng/mL Urine Color Yellow (Yellow) Urine Turbidity Clear (Clear) Urine pH 5.0 (5.0-7.0) Ur Specific [place] 1.035 H (1.003-1.030) Urine Protein 30 mg/dl (Negative) mg/dL Urine Glucose (UA) Neg (Negative) mg/dL Urine Ketones Tr (Negative) mg/dL Urine Blood Neg (Negative) Urine Nitrite Neg (Negative) Urine Bilirubin Neg (Negative) Urine Urobilinogen 4.0 (<2.0) mg/dL Ur Leukocyte Esterase Neg (Negative) Urine WBC (Auto) 1.0 (0.0-6.0) /HPF Urine RBC (Auto) 3.0 (0.0-6.0) /HPF U Epithel Cells (Auto) < 1.0 (0-13.0) /HPF Urine Mucus 2+ /HPF - EKG Data -: EKG Interpreted by Me (attending physician) EKG shows normal: sinus rhythm Rate: normal - EKG Data Interpretation: no acute changes, normal EKG (sinus rhythm at 69) - Radiology Data Radiology results: report reviewed CT of the head without contrast revealed no acute abnormalities - Medical Decision Making This case was discussed with Dr. Meza who agreed with patient's treatment plan after presentation. ED course: Patient here reports that he had episodic headache and that his blood pressure is elevated and he would like to have a refill on his blood pressure medication. He was seen by provider and medical screening done and based on patient report of headache CT of the head was ordered along with other lab work including troponin. Patient was not having any chest pain, shortness of breath, blurred vision or dizziness. He complained of headache to previous provider but reported that his headache was briefly and he was not having any headache. He said that he's been out of his blood pressure medication for a couple weeks and he needs a refill on his medicines. Critical care attestation.: If time is entered above; I have spent that time in minutes in the direct care of this critically ill patient, excluding procedure time. ED Disposition Clinical Impression: Elevated blood pressure reading with diagnosis of hypertension, Encounter for medication refill, Non compliance w medication regimen Episodic headache Qualifiers: Headache type: unspecified Intractability: not intractable Qualified Code(s): R51 - Headache Disposition: DC-01 TO HOME OR SELFCARE Is pt being admited?: No Does the pt Need Aspirin: No Condition: Stable Instructions: Acute Headache (ED), Hypertension (ED) Additional Instructions: Please keep a log of your blood pressure and take to Medical Center that I refer you to. This will be [facility] You need to be monitored by a primary care physician and have your medication refilled and adjusted as needed due to your chronic high blood pressure. If you do not take your blood pressure medication you can develop a stroke, heart attack, kidney disease and this could lead to . Please call [facility] [place] on Tuesday and schedule an appointment for initial visit to manage chronic hypertension. Prescriptions: amLODIPine [Norvasc] 10 mg PO DAILY 30 Days #30 tab Hydrochlorothiazide [HCTZ] 25 mg PO QDAY 30 Days #30 tablet Lisinopril [Zestril TAB] 20 mg PO QDAY #30 tablet Referrals: [facility] [Outside] - 2-3 Days [facility] [Outside] - 2-3 Days Forms: Accompanied Note, Work/School Release Form(ED)
[2017-03-19 00:14] VITALS: BP 154/103
--- NOTE | 2017-03-19 01:12 | Cat Scan Report ---
FINAL REPORT EXAM: CT HEAD/BRAIN WO CON HISTORY: headache 8 hours ago GRAY, Hx of HTN COMPARISON: None available. TECHNIQUE: Axial images obtained skull base through vertex. FINDINGS: No acute intracranial hemorrhage, midline shift or pathologic extra axial fluid collection. Ventricles and cisterns are normal in size and configuration for the patient's age. Lewis-white differentiation preserved. Calvarium grossly intact. Orbits are grossly unremarkable. Mild mucosal thickening the visualized paranasal sinuses. Small retention cyst or polyp right maxillary sinus. Mastoid air cells are clear. IMPRESSION: No grossly acute intracranial abnormality.
== END 2017-03-19 02:03 | disposition home or self-care (01) ==
LOC: ED 17:27
DX: I10 Essential (primary) hypertension (principal); G44.89 Other headache syndrome; F17.210 Nicotine dependence, cigarettes, uncomplicated; Z91.14 Patient's other noncompliance with medication regimen
CPT/HCPCS: 36415; 70450; 80048; 81001; 82962; 84484; 85025; 93005; 93010; 99284

== ENCOUNTER 2017-05-04 06:43 | Emergency (ER) | payer OTHER ==
[2017-05-04 07:55] LABS: Basophils # (Auto) 0.1 K/mm3 (0.0-0.1); Basophils % (Auto) 1.1 % (0.0-1.8); Eosinophils # (Auto) 0.2 K/mm3 (0.0-0.4); Hematocrit 46.6 % (35.5-45.6); Hemoglobin 15.8 gm/dl (11.8-15.2); Lymphocytes # (Auto) 1.6 K/mm3 (1.2-5.4); Lymphocytes % (Auto) 26.9 % (13.4-35.0); Mean Corpuscular HGB Conc 34 % (32-34); Mean Corpuscular Hemoglobin 30 pg (28-32); Mean Corpuscular Volume 90 fl (84-94); Monocytes % (Auto) 15.6 % (0.0-7.3); Platelet Count 182 K/mm3 (140-440); Red Blood Count 5.19 M/mm3 (3.65-5.03); Red Cell Distribution Width 14.4 % (13.2-15.2)
[2017-05-04] MEDS ORDERED: ZOFRAN ODT PO ONE (08:04)
[2017-05-04 08:09] LABS: Alanine Aminotransferase 25 units/L (7-56); Albumin 4.4 g/dL (3.9-5); BUN/Creatinine Ratio 10; Blood Urea Nitrogen 10 mg/dL (9-20); Calcium 9.3 mg/dL (8.4-10.2); Hemolysis Index 5; Lipase 20 units/L (13-60)
--- NOTE | 2017-05-04 08:10 | Emergency Department Report ---
ED General Adult HPI - General Chief complaint: Nausea/Vomiting/Diarrhea Stated complaint: FEVER,VOMITING Time Seen by Provider: 05/04/17 07:26 Source: patient Mode of arrival: Ambulatory Limitations: No Limitations - History of Present Illness Initial comments: Patient is a 41-year-old -[place] male who presents for flulike symptoms , fever n/v/d, cough earpain ,congestion and cough productive yellow 2 days patient has child diagnosed with flu yesterday symptoms include cough fever chills nausea vomiting diarrhea as diarrhea yesterday last nausea vomiting yesterday patient tolerating liquids she has a feeling of generalized malaise and fever Tmax 102 f, oral subjective - Related Data Previous Rx's Medication Instructions Recorded Last Taken Type Butalb/Acetaminophen/Caffeine 1 cap PO Q6HR PRN #7 cap 04/17/15 07/28/16 Rx [Fioricet 50-300-40 mg CAP] Cyclobenzaprine HCl [Flexeril 5 MG 5 mg PO TID PRN #12 tab 07/20/16 07/28/16 Rx TAB] Hydrochlorothiazide [HCTZ] 25 mg PO QDAY 30 Days #30 tablet 03/19/17 Unknown Rx Lisinopril [Zestril TAB] 20 mg PO QDAY #30 tablet 03/19/17 Unknown Rx amLODIPine [Norvasc] 10 mg PO DAILY 30 Days #30 tab 03/19/17 Unknown Rx Azithromycin [Zithromax Z-MAIA] 250 mg PO DAILY #6 tablet 05/04/17 Unknown Rx Codeine Phosphate/Guaifenesin 5 ml PO QID PRN #120 ml 05/04/17 Unknown Rx [Guaifenesin-Codeine Syrup] Ibuprofen 800 mg PO TID PRN #30 tablet 05/04/17 Unknown Rx Oseltamivir [Tamiflu] 75 mg PO BID #10 cap 05/04/17 Unknown Rx Allergies Allergy/AdvReac Type Severity Reaction Status Date / Time No Known Allergies Allergy Verified 07/20/16 15:47 ED Review of Systems ROS: Stated complaint: FEVER,VOMITING Other details as noted in HPI Constitutional: chills, fever, malaise Eyes: denies: eye pain, eye discharge, vision change ENT: ear pain, throat pain, congestion Respiratory: cough. denies: shortness of breath, wheezing Cardiovascular: denies: chest pain, palpitations Endocrine: no symptoms reported Gastrointestinal: as per HPI, nausea, vomiting, diarrhea. denies: constipation Genitourinary: denies: urgency, dysuria, frequency, discharge Musculoskeletal: denies: back pain, joint swelling, arthralgia Skin: denies: rash, lesions Neurological: denies: headache, weakness, paresthesias Psychiatric: denies: anxiety, depression Hematological/Lymphatic: denies: easy bleeding, easy bruising ED Past Medical Hx - Past Medical History Previous Medical History?: Yes Hx Hypertension: Yes - Surgical History Past Surgical History?: No - Social History Smoking Status: Current Every Day Smoker Substance Use Type: Alcohol, Prescribed - Medications Home Medications: Home Medications Medication Instructions Recorded Confirmed Last Taken Type Butalb/Acetaminophen/Caffeine 1 cap PO Q6HR PRN #7 cap 04/17/15 07/28/16 Rx [Fioricet 50-300-40 mg CAP] Cyclobenzaprine HCl [Flexeril 5 MG 5 mg PO TID PRN #12 tab 07/20/16 07/28/16 Rx TAB] Hydrochlorothiazide [HCTZ] 25 mg PO QDAY 30 Days #30 tablet 03/19/17 Unknown Rx Lisinopril [Zestril TAB] 20 mg PO QDAY #30 tablet 03/19/17 Unknown Rx amLODIPine [Norvasc] 10 mg PO DAILY 30 Days #30 tab 03/19/17 Unknown Rx Azithromycin [Zithromax Z-MAIA] 250 mg PO DAILY #6 tablet 05/04/17 Unknown Rx Codeine Phosphate/Guaifenesin 5 ml PO QID PRN #120 ml 05/04/17 Unknown Rx [Guaifenesin-Codeine Syrup] Ibuprofen 800 mg PO TID PRN #30 tablet 05/04/17 Unknown Rx Oseltamivir [Tamiflu] 75 mg PO BID #10 cap 05/04/17 Unknown Rx ED Physical Exam - General Limitations: No Limitations General appearance: alert, in no apparent distress - Head Head exam: Present: atraumatic, normocephalic - Eye Eye exam: Present: normal appearance, PERRL, EOMI Pupils: Present: normal accommodation - Expanded ENT Exam Expanded Ear exam: Present: normal external inspection TM/Canal exam: Erythema: Right TM, Left TM Throat exam: Positive: tonsillar erythema, tonsillomegaly. Negative: tonsillar exudate, R peritonsillar mass, L peritonsillar mass - Neck Neck exam: Present: normal inspection, full ROM. Absent: tenderness, lymphadenopathy, thyromegaly - Respiratory Respiratory exam: Present: normal lung sounds bilaterally. Absent: respiratory distress, wheezes, stridor, chest wall tenderness - Cardiovascular Cardiovascular Exam: Present: regular rate, normal rhythm, normal heart sounds. Absent: systolic murmur, diastolic murmur, rubs, gallop - GI/Abdominal GI/Abdominal exam: Present: soft, normal bowel sounds. Absent: distended, tenderness, guarding, rebound, rigid, mass, bruit, hernia - Rectal Rectal exam: Present: deferred - Extremities Exam Extremities exam: Present: normal inspection - Back Exam Back exam: Present: normal inspection - Neurological Exam Neurological exam: Present: alert, oriented X3 - Psychiatric Psychiatric exam: Present: normal affect, normal mood - Skin Skin exam: Present: warm, dry, intact, normal color. Absent: rash ED Course Vital Signs 05/04/17 07:19 Temperature 98.7 F Pulse Rate 84 Respiratory 16 Rate Blood Pressure 147/95 O2 Sat by Pulse 98 Oximetry ED Medical Decision Making - Lab Data Result diagrams: 05/04/17 07:37 05/04/17 07:37 Laboratory Tests 05/04/17 05/04/17 05/04/17 07:26 07:37 07:37 WBC 6.1 RBC 5.19 H Hgb 15.8 H Hct 46.6 H MCV 90 MCH 30 MCHC 34 RDW 14.4 Plt Count 182 Lymph % (Auto) 26.9 [place] % (Auto) 15.6 H Eos % (Auto) 4.0 Baso % (Auto) 1.1 Lymph # 1.6 [place] # 1.0 H Eos # 0.2 Baso # 0.1 Seg Neutrophils % 52.4 Seg Neutrophils # 3.2 Sodium 142 Potassium 3.4 L Chloride 102.5 Carbon Dioxide 26 Anion Gap 17 BUN 10 Creatinine 1.0 Estimated GFR > 60 BUN/Creatinine Ratio 10 Glucose 96 Calcium 9.3 Total Bilirubin 0.80 AST 25 ALT 25 Alkaline Phosphatase 82 Total Protein 7.1 Albumin 4.4 Albumin/Globulin Ratio 1.6 Lipase 20 Urine Color Yellow Urine Turbidity Clear Urine pH 6.0 Ur Specific [place] 1.018 Urine Protein <15 mg/dl Urine Glucose (UA) Neg Urine Ketones Neg Urine Blood Neg Urine Nitrite Neg Urine Bilirubin Neg Urine Urobilinogen 2.0 Ur Leukocyte Esterase Neg Urine WBC (Auto) < 1.0 Urine RBC (Auto) 4.0 - Medical Decision Making Patient is a 41-year-old -[place] male who presents for flulike symptoms , fever n/v/d, cough ear pressure pain ,congestion and cough productive yellow 2 days patient has child diagnosed with flu yesterday symptoms include cough fever chills nausea vomiting diarrhea as diarrhea yesterday last nausea vomiting yesterday patient tolerating liquids she has a feeling of generalized malaise and fever Tmax 102 f, oral subjective. Exam patient appears uncomfortable , ENT bilateral TM erythema pain with movement nose by a bilateral maxillary sinus pain no obstruction or polyps clear postnasal drip pharynx erythema mild edema no lesions no exudate uvula midline no stridor lungs clear no wheezing no rhonchi or cough noted not productive abdomen is soft nontender , No rebound no fluid shift no bruit no hernia labs: cmp: normal , cbc: normal , ua: normal plan tx for URI, influenza, tamiflu, Zpack, Cheratussin, ibuprofen, pt will follow up with pcp in 2-3 days , pt is currently tolerating po intake without n/v, pt verbalized agreement and understanding of discharge plan. Critical care attestation.: If time is entered above; I have spent that time in minutes in the direct care of this critically ill patient, excluding procedure time. ED Disposition Clinical Impression: URI (upper respiratory infection) Qualifiers: URI type: unspecified viral URI Qualified Code(s): J06.9 - Acute upper respiratory infection, unspecified; B97.89 - Other viral agents as the cause of diseases classified elsewhere; B97.89 - Other viral agents as the cause of diseases classified elsewhere AOM (acute otitis media) Qualifiers: Otitis media type: serous Laterality: bilateral Recurrence: not specified as recurrent Qualified Code(s): H65.03 - Acute serous otitis media, bilateral Disposition: - TO HOME OR SELFCARE Is pt being admited?: No Does the pt Need Aspirin: No Condition: Good Instructions: Upper Respiratory Infection (ED), Otitis Media (ED) Prescriptions: Azithromycin [Zithromax Z-MAIA] 250 mg PO DAILY #6 tablet Codeine Phosphate/Guaifenesin [Guaifenesin-Codeine Syrup] 5 ml PO QID PRN #120 ml PRN Reason: Cough Ibuprofen 800 mg PO TID PRN #30 tablet PRN Reason: pain Oseltamivir [Tamiflu] 75 mg PO BID #10 cap Referrals: HOMER SAUCEDO MD [Staff Physician] - 3-5 Days Forms: Work/School Release Form(ED) Time of Disposition: 08:44
[2017-05-04 08:17] LABS: Bilirubin,Urine NEG (Negative); Blood,Urine NEG (Negative); Color,Urine Yellow (Yellow); Nitrite,Urine NEG (Negative); Protein,Urine <15 mg/dL mg/dL (Negative); WBC,Urine < 1.0 /HPF (0.0-6.0)
[2017-05-04 09:05] VITALS: BP 150/86
== END 2017-05-04 08:55 | disposition home or self-care (01) ==
LOC: ED 06:43
DX: J06.9 Acute upper respiratory infection, unspecified (principal); H65.03 Acute serous otitis media, bilateral; F17.200 Nicotine dependence, unspecified, uncomplicated
CPT/HCPCS: 36415; 80053; 81001; 83690; 85025; 99283; Q0162

== ENCOUNTER 2017-07-11 17:15 | Emergency (ER) | payer OTHER ==
[2017-07-11] MEDS ORDERED: CATAPRES PO ONE (19:59)
[2017-07-11] MEDS ORDERED: TYLENOL PO ONE (19:59)
--- NOTE | 2017-07-11 20:19 | Emergency Department Report ---
HPI - General Chief Complaint: High BP Time Seen by Provider: 07/11/17 19:55 - HPI HPI: Patient reports nausea, headache elevated blood pressure and blurred vision that started this morning and he said he is not having those symptoms anymore. He said he is taking aspirin for headache and it relieved his headache. He said he is out of his blood pressure medication for 2 months to include lisinopril/HCTZ and amlodipine. Blood pressure in triage is 159/104. Patient denies any chest pain or shortness of breath. Denies any vomiting. Denies any back or abdominal pain. He is asymptomatic at present. Patient is requesting a work excuse and also refill on his medication for blood pressure. He said he has not seen a primary care doctor at present. Pain is 0-10 ED Past Medical Hx - Past Medical History Previous Medical History?: Yes Hx Hypertension: Yes - Surgical History Past Surgical History?: No - Family History Family history: hypertension - Social History Smoking Status: Current Every Day Smoker - Medications Home Medications: Home Medications Medication Instructions Recorded Confirmed Last Taken Type Butalb/Acetaminophen/Caffeine 1 cap PO Q6HR PRN #7 cap 04/17/15 07/28/16 Rx [Fioricet 50-300-40 mg CAP] Cyclobenzaprine HCl [Flexeril 5 MG 5 mg PO TID PRN #12 tab 07/20/16 07/28/16 Rx TAB] Azithromycin [Zithromax Z-MAIA] 250 mg PO DAILY #6 tablet 05/04/17 Unknown Rx Codeine Phosphate/Guaifenesin 5 ml PO QID PRN #120 ml 05/04/17 Unknown Rx [Guaifenesin-Codeine Syrup] Ibuprofen 800 mg PO TID PRN #30 tablet 05/04/17 Unknown Rx Oseltamivir [Tamiflu] 75 mg PO BID #10 cap 05/04/17 Unknown Rx Hydrochlorothiazide [HCTZ] 25 mg PO QDAY 30 Days #30 tablet 07/11/17 Unknown Rx Lisinopril [Zestril TAB] 20 mg PO QDAY 30 Days #30 tablet 07/11/17 Unknown Rx amLODIPine [Norvasc] 10 mg PO DAILY 30 Days #30 tab 07/11/17 Unknown Rx ED Review of Systems ROS: Stated complaint: HIGH BLOOD PRESSURE Other details as noted in HPI Comment: All other systems reviewed and negative Constitutional: no symptoms reported Eyes: denies: eye pain, eye discharge, vision change Cardiovascular: denies: chest pain, palpitations, dyspnea on exertion, orthopnea , edema, syncope, paroxysmal nocturnal dyspnea Gastrointestinal: denies: abdominal pain, nausea, vomiting, diarrhea Genitourinary: denies: hematuria Musculoskeletal: denies: back pain, joint swelling, arthralgia, myalgia Skin: denies: rash Neurological: denies: headache, weakness, numbness, paresthesias, confusion, abnormal gait, vertigo Physical Exam - Physical Exam Vital Signs: Vital Signs 07/11/17 17:22 Temperature 99.2 F Pulse Rate 86 Respiratory 16 Rate Blood Pressure 159/104 O2 Sat by Pulse 96 Oximetry General: This is a 41-year-old male well-nourished well-developed no acute distress. Physical Exam: Head: Normocephalic, atraumatic, no abrasion, no bruising and no contusion. Eyes: Biateral pupils equal and reactive to light, bilateral EOM intact.. Bilateral conjunctival and sclera without injection, normal accommodation. No nystagmus Mouth: Moist, no pharyngeal exudate or erythema. No peritonsillar abscesses. Uvula is midline and oral airways patent. Neck: Supple, No Cervical adenopathy, full range of motion and no C-spine tenderness. No swelling or tracheal deviation normal reflexes Cardiovascular: S1, S2. Regular rate and rhythm. No murmur. Capillary refill is less then 3 seconds. Lungs: Clear to auscultate bilaterally. No rhonchi, wheezes or rales. No chest wall tenderness. No chest contusion. No bruising to chest. MSK: Strength 5/5 in all extremities. No joint deformity or crepitus. Normal inspection. Full range of motion to all extremities. No laceration, abrasion or ecchymotic area noted. Abdomen: Non-tender to palpate in all quadrants, no guarding or rebound tenderness, positive bowel sounds in all quadrants. No CVA tenderness. No hernia, bruit or mass. No rigidity or distention. Extremities: No clubbing, cyanosis or edema. +2 pulses. No neurovascular compromise Skin: Clean, dry and intact. No rash or lesions. Neurological: GCS at 15, Pt is alert and oriented 3 speech is clear. Bilateral hand adventure therapist strong and equal. Normal gait. Negative Romberg and no pronator drift. Normal Reflexes. No motor or sensory deficit Back: No vertebral tenderness, no paraspinal tenderness. Relates 11 to difficulties Psych: Normal mood and behavior ED Course Vital Signs 07/11/17 17:22 Temperature 99.2 F Pulse Rate 86 Respiratory 16 Rate Blood Pressure 159/104 O2 Sat by Pulse 96 Oximetry - Reevaluation(s) Reevaluation #1: 07/11/17 20:45 given clonidine 0.1 mg by mouth and emergency room and Tylenol 650 mg by mouth that was ordered by Dr. Shepherd. ED Medical Decision Making - Medical Decision Making ED course: Patient here reports that he was having in nausea, headache, visual difficulties this morning because he has not taken his blood pressure medication for 2 months. He said he took aspirin this morning and symptoms are relieved. Patient is requesting a refill on his blood pressure medication. He takes lisinopril, and Norvasc and HCTZ. Patient neurologically intact and physical exam is normal. He's requested a work excuse for missing work today. He was given clonidine 0.1 mg in the emergency room for blood pressure 159/104 and Tylenol 650 mg. patient was screened by Dr. Shepherd. Discharged home in stable condition with prescription for amlodipine, HCTZ and lisinopril and to follow-up at [facility] for management of chronic blood pressure Critical care attestation.: If time is entered above; I have spent that time in minutes in the direct care of this critically ill patient, excluding procedure time. ED Disposition Clinical Impression: Elevated blood-pressure reading without diagnosis of hypertension, Medically noncompliant Disposition: DC-01 TO HOME OR SELFCARE Is pt being admited?: No Does the pt Need Aspirin: No Condition: Stable Instructions: DASH Eating Plan (ED), Hypertension (ED) Additional Instructions: He states he put pressure and keep a log and take to primary care visit at [facility] to manage her chronic medical problems Take medication as prescribed The information on diet for high blood pressure Prescriptions: amLODIPine [Norvasc] 10 mg PO DAILY 30 Days #30 tab Hydrochlorothiazide [HCTZ] 25 mg PO QDAY 30 Days #30 tablet Lisinopril [Zestril TAB] 20 mg PO QDAY 30 Days #30 tablet Referrals: [facility] [Outside] - 2-3 Days Forms: Work/School Release Form(ED)
[2017-07-11 21:32] VITALS: BP 164/102
--- NOTE | 2017-07-11 22:26 | Emergency Department Report ---
Chief Complaint: High BP Stated Complaint: HIGH BLOOD PRESSURE Time Seen by Provider: 07/11/17 19:55 - HPI History of Present Illness: The patient is a 41-year-old male presents for evaluation of headache and elevated blood pressure. The patient reports headache and elevated blood pressure since this morning, moderate to severe, and associated with photophobia , dizziness, blurry vision. He states that his symptoms completely resolved prior to my evaluation. He states that he is now completely asymptomatic. The patient denies fever, head injury, neck pain, neck stiffness, smell or taste changes, paresthesias, facial drooping, slurred speech, seizure-like activity, urine or bowel incontinence or retention, or other focal neurological deficit. - Exam Vital Signs: Vital Signs 07/11/17 07/11/17 07/11/17 17:22 20:53 20:57 Temperature 99.2 F 99.4 F Pulse Rate 86 75 75 Respiratory 16 17 Rate Blood Pressure 159/104 163/118 Blood Pressure 163/112 [Right] O2 Sat by Pulse 96 98 Oximetry 07/11/17 21:28 Temperature Pulse Rate 82 Respiratory 16 Rate Blood Pressure Blood Pressure 164/102 [Right] O2 Sat by Pulse 100 Oximetry MSE screening note: Focused history and physical exam performed. Due to findings the following was ordered: ED Disposition for MSE Clinical Impression: Elevated blood-pressure reading without diagnosis of hypertension, Medically noncompliant Disposition: DC-01 TO HOME OR SELFCARE Condition: Stable Instructions: DASH Eating Plan (ED), Hypertension (ED) Additional Instructions: He states he put pressure and keep a log and take to primary care visit at [facility] to manage her chronic medical problems Take medication as prescribed The information on diet for high blood pressure Prescriptions: amLODIPine [Norvasc] 10 mg PO DAILY 30 Days #30 tab Hydrochlorothiazide [HCTZ] 25 mg PO QDAY 30 Days #30 tablet Lisinopril [Zestril TAB] 20 mg PO QDAY 30 Days #30 tablet Referrals: [facility] [Outside] - 2-3 Days Forms: Work/School Release Form(ED)
== END 2017-07-11 21:27 | disposition home or self-care (01) ==
LOC: ED 17:15
DX: I10 Essential (primary) hypertension (principal); F17.200 Nicotine dependence, unspecified, uncomplicated
CPT/HCPCS: 99282

== ENCOUNTER 2017-09-16 16:44 | Emergency (ER) | payer SELFPAY ==
[2017-09-16 17:33] VITALS: BP 149/100
--- NOTE | 2017-09-16 19:00 | Emergency Department Report ---
ED General Adult HPI - General Chief complaint: Animal Bite Stated complaint: TICK BITE Time Seen by Provider: 09/16/17 18:45 Source: patient Mode of arrival: Ambulatory Limitations: No Limitations - History of Present Illness Initial comments: This is a 42-year-old -[place] male who is presenting with a tick bite. Patient states was bitten approximately 2 days ago. Patient states that he has some pain in this area he was able to successfully remove the tick. Patient denies any fevers chills nausea vomiting or diarrhea at this time. Patient also states that he's been out of his blood pressure medicines last several days like to get a refill as well. - Related Data Previous Rx's Medication Instructions Recorded Last Taken Type Butalb/Acetaminophen/Caffeine 1 cap PO Q6HR PRN #7 cap 04/17/15 07/28/16 Rx [Fioricet 50-300-40 mg CAP] Cyclobenzaprine HCl [Flexeril 5 MG 5 mg PO TID PRN #12 tab 07/20/16 07/28/16 Rx TAB] Azithromycin [Zithromax Z-MAIA] 250 mg PO DAILY #6 tablet 05/04/17 Unknown Rx Codeine Phosphate/Guaifenesin 5 ml PO QID PRN #120 ml 05/04/17 Unknown Rx [Guaifenesin-Codeine Syrup] Ibuprofen 800 mg PO TID PRN #30 tablet 05/04/17 Unknown Rx Oseltamivir [Tamiflu] 75 mg PO BID #10 cap 05/04/17 Unknown Rx Hydrochlorothiazide [HCTZ] 25 mg PO QDAY 30 Days #30 tablet 07/11/17 Unknown Rx Doxycycline [Vibramycin CAP] 100 mg PO Q12HR #14 capsule 09/16/17 Unknown Rx Ibuprofen [Motrin] 600 mg PO Q8H PRN #20 tablet 09/16/17 Unknown Rx Lisinopril [Zestril TAB] 20 mg PO QDAY 30 Days #30 tablet 09/16/17 Unknown Rx amLODIPine [Norvasc] 10 mg PO DAILY 30 Days #30 tab 09/16/17 Unknown Rx traMADol [Ultram] 50 mg PO Q6HR PRN #10 tablet 09/16/17 Unknown Rx Allergies Allergy/AdvReac Type Severity Reaction Status Date / Time No Known Allergies Allergy Verified 07/20/16 15:47 ED Review of Systems ROS: Stated complaint: TICK BITE Other details as noted in HPI Comment: All other systems reviewed and negative ED Past Medical Hx - Past Medical History Previous Medical History?: Yes Hx Hypertension: Yes - Surgical History Past Surgical History?: No - Social History Smoking Status: Current Some Day Smoker Substance Use Type: Alcohol - Medications Home Medications: Home Medications Medication Instructions Recorded Confirmed Last Taken Type Butalb/Acetaminophen/Caffeine 1 cap PO Q6HR PRN #7 cap 04/17/15 07/28/16 Rx [Fioricet 50-300-40 mg CAP] Cyclobenzaprine HCl [Flexeril 5 MG 5 mg PO TID PRN #12 tab 07/20/16 07/28/16 Rx TAB] Azithromycin [Zithromax Z-MAIA] 250 mg PO DAILY #6 tablet 05/04/17 Unknown Rx Codeine Phosphate/Guaifenesin 5 ml PO QID PRN #120 ml 05/04/17 Unknown Rx [Guaifenesin-Codeine Syrup] Ibuprofen 800 mg PO TID PRN #30 tablet 05/04/17 Unknown Rx Oseltamivir [Tamiflu] 75 mg PO BID #10 cap 05/04/17 Unknown Rx Hydrochlorothiazide [HCTZ] 25 mg PO QDAY 30 Days #30 tablet 07/11/17 Unknown Rx Doxycycline [Vibramycin CAP] 100 mg PO Q12HR #14 capsule 09/16/17 Unknown Rx Ibuprofen [Motrin] 600 mg PO Q8H PRN #20 tablet 09/16/17 Unknown Rx Lisinopril [Zestril TAB] 20 mg PO QDAY 30 Days #30 tablet 09/16/17 Unknown Rx amLODIPine [Norvasc] 10 mg PO DAILY 30 Days #30 tab 09/16/17 Unknown Rx traMADol [Ultram] 50 mg PO Q6HR PRN #10 tablet 09/16/17 Unknown Rx ED Physical Exam - General Limitations: No Limitations General appearance: alert, in no apparent distress - Head Head exam: Present: atraumatic, normocephalic - Eye Eye exam: Present: normal appearance - ENT ENT exam: Present: mucous membranes moist - Neck Neck exam: Present: normal inspection - Respiratory Respiratory exam: Present: normal lung sounds bilaterally. Absent: respiratory distress - Cardiovascular Cardiovascular Exam: Present: regular rate, normal rhythm. Absent: systolic murmur, diastolic murmur, rubs, gallop - GI/Abdominal GI/Abdominal exam: Present: soft, normal bowel sounds - Rectal Rectal exam: Present: deferred - Extremities Exam Extremities exam: Present: normal inspection - Back Exam Back exam: Present: normal inspection - Neurological Exam Neurological exam: Present: alert, oriented X3 - Psychiatric Psychiatric exam: Present: normal affect, normal mood - Skin Skin exam: Present: warm, dry, intact, normal color, other (the right upper arm just distal to the deltoid patient has a nickel-sized area of induration with central necrosis from the puncture.). Absent: rash ED Course Vital Signs 09/16/17 17:20 Temperature 98.3 F Pulse Rate 83 Respiratory 18 Rate Blood Pressure 149/100 O2 Sat by Pulse 97 Oximetry ED Medical Decision Making - Medical Decision Making Patient be given a prescription for doxycycline for the next week and will be discharged home also with refills of his blood pressure medicines. I will also be given the patient's Ultram. Patient does appear to have a mild cellulitis secondary to the tick bite. Doxycycline also will cover for MRSA as well Critical care attestation.: If time is entered above; I have spent that time in minutes in the direct care of this critically ill patient, excluding procedure time. ED Disposition Clinical Impression: Tick bite Qualifiers: Encounter type: initial encounter Qualified Code(s): W57.XXXA - Bitten or stung by nonvenomous insect and other nonvenomous arthropods, initial encounter Infected insect bite Qualifiers: Encounter type: initial encounter Qualified Code(s): W57.XXXA - Bitten or stung by nonvenomous insect and other nonvenomous arthropods, initial encounter Hypertension Qualifiers: Hypertension type: unspecified Qualified Code(s): I10 - Essential (primary) hypertension Disposition: DC-01 TO HOME OR SELFCARE Is pt being admited?: No Does the pt Need Aspirin: No Condition: Stable Instructions: Hypertension (ED), Tick Bite (ED), Cellulitis (ED) Prescriptions: amLODIPine [Norvasc] 10 mg PO DAILY 30 Days #30 tab Doxycycline [Vibramycin CAP] 100 mg PO Q12HR #14 capsule Ibuprofen [Motrin] 600 mg PO Q8H PRN #20 tablet PRN Reason: Pain Lisinopril [Zestril TAB] 20 mg PO QDAY 30 Days #30 tablet traMADol [Ultram] 50 mg PO Q6HR PRN #10 tablet PRN Reason: Pain Referrals: PRIMARY CARE,MD [Primary Care Provider] - 3-5 Days
== END 2017-09-16 19:06 | disposition home or self-care (01) ==
LOC: ED 16:44
DX: T14.8XXA Other injury of unspecified body region, initial encounter (principal); I10 Essential (primary) hypertension; Z76.0 Encounter for issue of repeat prescription; F17.200 Nicotine dependence, unspecified, uncomplicated; Z79.899 Other long term (current) drug therapy; W57.XXXA Bitten or stung by nonvenomous insect and other nonvenomous arthropods, initial encounter; Y93.89 Activity, other specified; Y99.8 Other external cause status; Y92.89 Other specified places as the place of occurrence of the external cause
CPT/HCPCS: 99281; 99282

== ENCOUNTER 2017-11-11 10:50 | Emergency (ER) | payer SELFPAY ==
[2017-11-11 11:57] LABS: Basophils # (Auto) 0.1 K/mm3 (0.0-0.1); Basophils % (Auto) 0.8 % (0.0-1.8); Eosinophils # (Auto) 0.1 K/mm3 (0.0-0.4); Eosinophils % (Auto) 1.9 % (0.0-4.3); Hematocrit 43.6 % (35.5-45.6); Hemoglobin 14.5 gm/dl (11.8-15.2); Lymphocytes # (Auto) 2.1 K/mm3 (1.2-5.4); Lymphocytes % (Auto) 31.6 % (13.4-35.0); Mean Corpuscular HGB Conc 33 % (32-34); Mean Corpuscular Hemoglobin 30 pg (28-32); Mean Corpuscular Volume 91 fl (84-94); Monocytes # (Auto) 0.8 K/mm3 (0.0-0.8); Monocytes % (Auto) 11.8 % (0.0-7.3); Platelet Count 203 K/mm3 (140-440); Red Blood Count 4.79 M/mm3 (3.65-5.03); Red Cell Distribution Width 14.2 % (13.2-15.2)
[2017-11-11 11:58] LABS: Bilirubin,Urine NEG (Negative); Blood,Urine NEG (Negative); Color,Urine Yellow (Yellow); Mucus,Urine FEW /HPF; Protein,Urine <15 mg/dL mg/dL (Negative); Urobilinogen,Urine < 2.0 mg/dL (<2.0); WBC,Urine < 1.0 /HPF (0.0-6.0)
[2017-11-11 12:40] LABS: Alanine Aminotransferase 35 units/L (7-56); Albumin 4.1 g/dL (3.9-5); BUN/Creatinine Ratio 14; Blood Urea Nitrogen 15 mg/dL (9-20); Hemolysis Index 5
--- NOTE | 2017-11-11 13:41 | Emergency Department Report ---
- General Chief complaint: High BP Stated complaint: HYPERTENSIVE Time Seen by Provider: 11/11/17 13:32 Source: patient Mode of arrival: Ambulatory Limitations: No Limitations - History of Present Illness Initial comments: 42-year-old male past medical history hypertension presents with complaint of approximately 4 days of persistent fatigue. Patient states that he is not taking his hypertension medicine approximately 3 weeks. Patient takes amlodipine and lisinopril. Patient denies current chest pain palpitations shortness of breath nausea vomiting dysuria or hematuria. Patient states that he's been working in hot environment over the last several weeks and feels slightly dehydrated and slightly more tired than usual. Patient is fully lucid awake alert and oriented 3 not in acute distress. MD Complaint: lack of energy Onset/Timin -: week(s) Location: generalized Severity: mild Context: new medication Associated Symptoms: denies other symptoms - Related Data Previous Rx's Medication Instructions Recorded Last Taken Type Butalb/Acetaminophen/Caffeine 1 cap PO Q6HR PRN #7 cap 04/17/15 07/28/16 Rx [Fioricet 50-300-40 mg CAP] Cyclobenzaprine HCl [Flexeril 5 MG 5 mg PO TID PRN #12 tab 07/20/16 07/28/16 Rx TAB] Azithromycin [Zithromax Z-MAIA] 250 mg PO DAILY #6 tablet 05/04/17 Unknown Rx Codeine Phosphate/Guaifenesin 5 ml PO QID PRN #120 ml 05/04/17 Unknown Rx [Guaifenesin-Codeine Syrup] Ibuprofen 800 mg PO TID PRN #30 tablet 05/04/17 Unknown Rx Oseltamivir [Tamiflu] 75 mg PO BID #10 cap 05/04/17 Unknown Rx Hydrochlorothiazide [HCTZ] 25 mg PO QDAY 30 Days #30 tablet 07/11/17 Unknown Rx Doxycycline [Vibramycin CAP] 100 mg PO Q12HR #14 capsule 09/16/17 Unknown Rx Ibuprofen [Motrin] 600 mg PO Q8H PRN #20 tablet 09/16/17 Unknown Rx Lisinopril [Zestril TAB] 20 mg PO QDAY 30 Days #30 tablet 09/16/17 Unknown Rx amLODIPine [Norvasc] 10 mg PO DAILY 30 Days #30 tab 09/16/17 Unknown Rx traMADol [Ultram] 50 mg PO Q6HR PRN #10 tablet 09/16/17 Unknown Rx Lisinopril [Zestril] 10 mg PO QDAY #30 tablet 11/11/17 Unknown Rx amLODIPine [Norvasc] 10 mg PO DAILY #30 tab 11/11/17 Unknown Rx Allergies Allergy/AdvReac Type Severity Reaction Status Date / Time No Known Allergies Allergy Verified 07/20/16 15:47 ED Review of Systems ROS: Stated complaint: HYPERTENSIVE Other details as noted in HPI Constitutional: denies: chills, fever Eyes: denies: eye pain, eye discharge, vision change ENT: denies: ear pain, throat pain Respiratory: denies: cough, shortness of breath, wheezing Cardiovascular: denies: chest pain, palpitations Endocrine: no symptoms reported Gastrointestinal: denies: abdominal pain, nausea, diarrhea Genitourinary: denies: urgency, dysuria Musculoskeletal: denies: back pain, joint swelling, arthralgia Skin: denies: rash, lesions Neurological: denies: headache, weakness, paresthesias Psychiatric: denies: anxiety, depression Hematological/Lymphatic: denies: easy bleeding, easy bruising ED Past Medical Hx - Past Medical History Hx Hypertension: Yes - Social History Smoking Status: Current Every Day Smoker Substance Use Type: None - Medications Home Medications: Home Medications Medication Instructions Recorded Confirmed Last Taken Type Butalb/Acetaminophen/Caffeine 1 cap PO Q6HR PRN #7 cap 04/17/15 07/28/16 Rx [Fioricet 50-300-40 mg CAP] Cyclobenzaprine HCl [Flexeril 5 MG 5 mg PO TID PRN #12 tab 07/20/16 07/28/16 Rx TAB] Azithromycin [Zithromax Z-MAIA] 250 mg PO DAILY #6 tablet 05/04/17 Unknown Rx Codeine Phosphate/Guaifenesin 5 ml PO QID PRN #120 ml 05/04/17 Unknown Rx [Guaifenesin-Codeine Syrup] Ibuprofen 800 mg PO TID PRN #30 tablet 05/04/17 Unknown Rx Oseltamivir [Tamiflu] 75 mg PO BID #10 cap 05/04/17 Unknown Rx Hydrochlorothiazide [HCTZ] 25 mg PO QDAY 30 Days #30 tablet 07/11/17 Unknown Rx Doxycycline [Vibramycin CAP] 100 mg PO Q12HR #14 capsule 05/18/18 Unknown Rx Ibuprofen [Motrin] 600 mg PO Q8H PRN #20 tablet 09/16/17 Unknown Rx Lisinopril [Zestril TAB] 20 mg PO QDAY 30 Days #30 tablet 09/16/17 Unknown Rx amLODIPine [Norvasc] 10 mg PO DAILY 30 Days #30 tab 09/16/17 Unknown Rx traMADol [Ultram] 50 mg PO Q6HR PRN #10 tablet 09/16/17 Unknown Rx Lisinopril [Zestril] 10 mg PO QDAY #30 tablet 11/11/17 Unknown Rx amLODIPine [Norvasc] 10 mg PO DAILY #30 tab 11/11/17 Unknown Rx ED Physical Exam - General Limitations: No Limitations General appearance: alert, in no apparent distress - Head Head exam: Present: atraumatic, normocephalic - Eye Eye exam: Present: normal appearance, PERRL, EOMI - ENT ENT exam: Present: mucous membranes moist - Neck Neck exam: Present: normal inspection - Respiratory Respiratory exam: Present: normal lung sounds bilaterally. Absent: respiratory distress - Cardiovascular Cardiovascular Exam: Present: regular rate, normal rhythm. Absent: systolic murmur, diastolic murmur, rubs, gallop - GI/Abdominal GI/Abdominal exam: Present: soft, normal bowel sounds - Rectal Rectal exam: Present: deferred - Extremities Exam Extremities exam: Present: normal inspection - Back Exam Back exam: Present: normal inspection - Neurological Exam Neurological exam: Present: alert, oriented X3, CN II-XII intact, normal gait - Expanded Neurological Exam Expanded Patient oriented to: Present: person, place, time Cranial nerves: EOM's Intact: Normal, Facial Sensation: Normal Cerebellar function: Finger to Nose: Normal, Heel to Brasher: Normal, Romberg: Normal Sensory exam: Upper Extremity Light Touch: Normal, Lower Extremity Light Touch: Normal Motor strength exam: RUE: 5, LUE: 5, RLE: 5, LLE: 5 Best Eye Response (Wheeler): (4) open spontaneously Best Motor Response ([place]mita): (6) obeys commands Best Verbal Response (Wheeler): (5) oriented Wheeler Total: 15 - Psychiatric Psychiatric exam: Present: normal affect, normal mood - Skin Skin exam: Present: warm, dry, intact, normal color. Absent: rash - Assessment Assessment Interval: Baseline - Level of Consciousness 1a. Level of Consciousness: alert - LOC Questions 1b. LOC Questions: answers correctly - LOC Command 1c. LOC Commands: performs tasks correctly - Best Gaze 2. Best Gaze: normal - Visual 3. Visual: no visual loss - Facial Palsy 4. Facial Palsy: normal symmetrical movement - Motor Arm 5b. Motor Arm Right: no drift 5a. Motor Arm Left: no drift - Motor Leg 6a. Motor Leg Left: no drift 6b. Motor Leg Right: no drift - Limb Ataxia 7. Limb Ataxia: absent - Sensory 8. Sensory: normal - Best Language 9. Best Language: no aphasia - Dysarthria 10. Dysarthria: normal - Extinction and Inattention 11. Extinction/Inattention: no abnormality - Scoring Total Score: 0 Stroke Severity: No Stroke Symptoms ED Course Vital Signs 11/11/17 11:20 Temperature 98.5 F Pulse Rate 86 Respiratory 16 Rate Blood Pressure 139/86 O2 Sat by Pulse 96 Oximetry ED Medical Decision Making - Lab Data Result diagrams: 11/11/17 11:42 11/11/17 11:42 - Medical Decision Making A/P: Asymptomatic hypertension, mild dehydration, elevated creatinine kinase 1-case and labs discussed with Dr. Anton 2-pt offered IV fluid but states that he would rather drink water at this time. I advised patient to remain well-hydrated. Patient is tolerating oral fluids without significant difficulty. I advised him that if he feels weaker or more fatigued to return to the ED to have his creatinine kinase rechecked as it is mildly elevated at a level of approximately 1000. I informed Dr[address] Anton of this discussion with patient. As long as patient is able to tolerate by mouth fluid is reasonable to discharge him with precautions 3-follow-up with primary care 4- vital signs stable for discharge Critical care attestation.: If time is entered above; I have spent that time in minutes in the direct care of this critically ill patient, excluding procedure time. ED Disposition Clinical Impression: Dehydration, Elevated creatine kinase, Medication refill Fatigue Qualifiers: Fatigue type: due to excessive exertion Encounter type: initial encounter Qualified Code(s): T73.3XXA - Exhaustion due to excessive exertion, initial encounter Disposition: TO HOME OR SELFCARE Is pt being admited?: No Does the pt Need Aspirin: No Condition: Stable Instructions: Dehydration (ED), Rhabdomyolysis (ED), Hypertension (ED) Prescriptions: amLODIPine [Norvasc] 10 mg PO DAILY #30 tab Lisinopril [Zestril] 10 mg PO QDAY #30 tablet Referrals: [facility] [Provider Group] - 3-5 Days Forms: Work/School Release Form(ED) Time of Disposition: 14:43
[2017-11-11] MEDS ORDERED: NACL 0.9% 1000 ML 1,000 ML IV ONE (14:19)
[2017-11-11 14:49] VITALS: BP 162/106
== END 2017-11-11 14:52 | disposition home or self-care (01) ==
LOC: ED 10:50
DX: E86.0 Dehydration (principal); R53.83 Other fatigue; R74.8 Abnormal levels of other serum enzymes; I10 Essential (primary) hypertension; F17.200 Nicotine dependence, unspecified, uncomplicated
CPT/HCPCS: 36415; 80053; 81001; 82550; 84484; 85025; 93005; 93010; 96360; 99283

== ENCOUNTER 2018-06-21 11:32 | Emergency (ER) | payer SELFPAY ==
--- NOTE | 2018-06-21 11:56 | Emergency Department Report ---
Blank Doc - Documentation Documentation: This is a 42-year-old male that presents with left knee pain and swelling. Den ies any injuries. This initial assessment diagnostic orders/clinical plan/treatment(s) is/are subject to change based on patient's health status, clinical progression and re- assessment by fellow clinical providers in the ED. Further treatment and workup at subsequent clinical providers discretion. Patient/guardians urged not to elope from ED s their condition may be serious if not clinically assessed and managed. Initial orders include: 1-Patient sent to [facility] for further evaluation and treatment 2-xr of knee
--- NOTE | 2018-06-21 12:46 | XRay Report ---
LEFT KNEE RADIOGRAPHS INDICATION: Left knee pain and swelling. COMPARISON: None similar. FINDINGS: AP, lateral and oblique left knee radiographs suggest moderate to large suprapatellar soft tissue swelling/effusion. Degenerative changes as spurring noted involving the patellofemoral and medial compartments as also the tibial spines. Intact overall articulation. CONCLUSION: Left knee degenerative changes with suprapatellar effusion suspected, as described. Please correlate. Thank you for the opportunity to participate in this patient's care.
--- NOTE | 2018-06-21 14:09 | Emergency Department Report ---
ED General Adult HPI - General Chief complaint: Nausea/Vomiting/Diarrhea Stated complaint: KNEE PAIN/FEVER Time Seen by Provider: 06/21/18 11:56 Source: patient Mode of arrival: Wheelchair Limitations: Physical Limitation - History of Present Illness Initial comments: This 42-year-old black male who is presenting with 2 issues. Issue #1 patient has developed over the last 2 days left knee pain and swelling. Patient occasionally does have some aches in the knee but this is the first time he's had swelling. Patient denies any fevers chills nausea vomiting or direct trauma. Patient also states for the last 2 days he's had some mild diarrhea and some chills. Patient states diarrhea is improving. He denies any abdominal pains time and denies any direct nausea. - Related Data Previous Rx's Medication Instructions Recorded Last Taken Type Butalb/Acetaminophen/Caffeine 1 cap PO Q6HR PRN #7 cap 04/17/15 07/28/16 Rx [Fioricet 50-300-40 mg CAP] Cyclobenzaprine HCl [Flexeril 5 MG 5 mg PO TID PRN #12 tab 07/20/16 07/28/16 Rx TAB] Azithromycin [Zithromax Z-MAIA] 250 mg PO DAILY #6 tablet 05/04/17 Unknown Rx Codeine Phosphate/Guaifenesin 5 ml PO QID PRN #120 ml 05/04/17 Unknown Rx [Guaifenesin-Codeine Syrup] Ibuprofen 800 mg PO TID PRN #30 tablet 05/04/17 Unknown Rx Oseltamivir [Tamiflu] 75 mg PO BID #10 cap 05/04/17 Unknown Rx hydroCHLOROthiazide [HCTZ] 25 mg PO QDAY 30 Days #30 tablet 07/11/17 Unknown Rx Doxycycline [Vibramycin CAP] 100 mg PO Q12HR #14 capsule 09/16/17 Unknown Rx Ibuprofen [Motrin] 600 mg PO Q8H PRN #20 tablet 09/16/17 Unknown Rx Lisinopril [Zestril TAB] 20 mg PO QDAY 30 Days #30 tablet 09/16/17 Unknown Rx amLODIPine [Norvasc] 10 mg PO DAILY 30 Days #30 tab 09/16/17 Unknown Rx traMADol [Ultram] 50 mg PO Q6HR PRN #10 tablet 09/16/17 Unknown Rx Lisinopril [Zestril] 10 mg PO QDAY #30 tablet 11/11/17 Unknown Rx amLODIPine [Norvasc] 10 mg PO DAILY #30 tab 11/11/17 Unknown Rx HYDROcodone/APAP 5-325 [Force 1 each PO Q4HR PRN #12 tablet 06/21/18 Unknown Rx 5/325] Ibuprofen [Motrin] 600 mg PO Q8H PRN #20 tablet 06/21/18 Unknown Rx Allergies Allergy/AdvReac Type Severity Reaction Status Date / Time No Known Allergies Allergy Verified 07/20/16 15:47 ED Review of Systems ROS: Stated complaint: KNEE PAIN/FEVER Other details as noted in HPI Comment: All other systems reviewed and negative ED Past Medical Hx - Past Medical History Hx Hypertension: Yes - Surgical History Past Surgical History?: No - Social History Smoking Status: Current Every Day Smoker Substance Use Type: None - Medications Home Medications: Home Medications Medication Instructions Recorded Confirmed Last Taken Type Butalb/Acetaminophen/Caffeine 1 cap PO Q6HR PRN #7 cap 04/17/15 07/28/16 07/28/16 Rx [Fioricet 50-300-40 mg CAP] Cyclobenzaprine HCl [Flexeril 5 MG 5 mg PO TID PRN #12 tab 07/20/16 07/28/16 07/28/16 Rx TAB] Azithromycin [Zithromax Z-MAIA] 250 mg PO DAILY #6 tablet 05/04/17 Unknown Rx Codeine Phosphate/Guaifenesin 5 ml PO QID PRN #120 ml 05/04/17 Unknown Rx [Guaifenesin-Codeine Syrup] Ibuprofen 800 mg PO TID PRN #30 tablet 05/04/17 Unknown Rx Oseltamivir [Tamiflu] 75 mg PO BID #10 cap 05/04/17 Unknown Rx hydroCHLOROthiazide [HCTZ] 25 mg PO QDAY 30 Days #30 tablet 07/11/17 Unknown Rx Doxycycline [Vibramycin CAP] 100 mg PO Q12HR #14 capsule 09/16/17 Unknown Rx Ibuprofen [Motrin] 600 mg PO Q8H PRN #20 tablet 09/16/17 Unknown Rx Lisinopril [Zestril TAB] 20 mg PO QDAY 30 Days #30 tablet 09/16/17 Unknown Rx amLODIPine [Norvasc] 10 mg PO DAILY 30 Days #30 tab 09/16/17 Unknown Rx traMADol [Ultram] 50 mg PO Q6HR PRN #10 tablet 09/16/17 Unknown Rx Lisinopril [Zestril] 10 mg PO QDAY #30 tablet 11/11/17 Unknown Rx amLODIPine [Norvasc] 10 mg PO DAILY #30 tab 11/11/17 Unknown Rx HYDROcodone/APAP 5-325 [Force 1 each PO Q4HR PRN #12 tablet 06/21/18 Unknown Rx 5/325] Ibuprofen [Motrin] 600 mg PO Q8H PRN #20 tablet 06/21/18 Unknown Rx ED Physical Exam - General Limitations: Physical Limitation General appearance: alert, in no apparent distress - Head Head exam: Present: atraumatic, normocephalic - Eye Eye exam: Present: normal appearance - ENT ENT exam: Present: mucous membranes moist - Neck Neck exam: Present: normal inspection - Respiratory Respiratory exam: Present: normal lung sounds bilaterally. Absent: respiratory distress, wheezes, rales, rhonchi - Cardiovascular Cardiovascular Exam: Present: regular rate, normal rhythm. Absent: systolic murmur, diastolic murmur, rubs, gallop - GI/Abdominal GI/Abdominal exam: Present: soft, normal bowel sounds. Absent: distended, tenderness, guarding, rebound - Rectal Rectal exam: Present: deferred - Extremities Exam Extremities exam: Present: normal inspection, tenderness, joint swelling (patient has some left knee swelling. There is a moderate effusion clinically. There is no overlying erythema or warmth. He has full range of motion.) - Back Exam Back exam: Present: normal inspection - Neurological Exam Neurological exam: Present: alert, oriented X3 - Psychiatric Psychiatric exam: Present: normal affect, normal mood - Skin Skin exam: Present: warm, dry, intact, normal color. Absent: rash ED Course Vital Signs 06/21/18 11:54 Temperature 98.1 F Pulse Rate 87 Respiratory 18 Rate Blood Pressure 168/110 O2 Sat by Pulse 98 Oximetry ED Medical Decision Making - Medical Decision Making Patient likely with a viral enteritis which is resolving per patient. Patient does state that his left knee is swollen. At this period of arthritic flareup. Patient was given instruction on rice therapy and menstrual pain. Critical care attestation.: If time is entered above; I have spent that time in minutes in the direct care of this critically ill patient, excluding procedure time. ED Disposition Clinical Impression: Knee arthropathy, Enteritis Knee effusion Qualifiers: Laterality: left Qualified Code(s): M25.462 - Effusion, left knee Disposition: TO HOME OR SELFCARE Is pt being admited?: No Does the pt Need Aspirin: No Condition: Stable Instructions: Knee Effusion (ED), Osteoarthritis (ED), RICE Therapy (ED) Referrals: DAMARI MERCHANT MD [Staff Physician] - 3-5 Days Time of Disposition: 14:08
[2018-06-21] MEDS ORDERED: IBUPROFEN ONE (14:28)
[2018-06-21 14:32] VITALS: BP 186/120
== END 2018-06-21 14:40 | disposition home or self-care (01) ==
LOC: ED 11:32
DX: M25.462 Effusion, left knee (principal); K52.9 Noninfective gastroenteritis and colitis, unspecified; I10 Essential (primary) hypertension; F17.200 Nicotine dependence, unspecified, uncomplicated
CPT/HCPCS: 99283

== ENCOUNTER 2021-07-29 18:07 | Emergency (ER) | payer SELFPAY ==
[2021-07-29 19:43] VITALS: BP 190/125
[2021-07-29] MEDS ORDERED: AMOXICILLIN/K CLAV 875/125MG TAB PO ONE (21:47)
[2021-07-29] MEDS ORDERED: amLODIPine 5 MG TAB PO ONE (21:47)
[2021-07-29] MEDS ORDERED: IBUPROFEN 800 MG TAB PO ONE (21:47)
--- NOTE | 2021-07-29 22:02 | Emergency Department Report ---
ED General Adult HPI - General Chief complaint: High BP Stated complaint: EAR ACHE AND BLOOD PRESSURE Time Seen by Provider: 07/29/21 21:45 Source: patient Mode of arrival: Ambulatory Limitations: No Limitations - History of Present Illness Initial comments: Patient 45-year-old male with history of benign essential hypertension controlled on amlodipine however patient advises nonadherence, patient presents tonight for left earache. Ear pain rated at 5/10 with mild tinnitus. Patient states sinus pain and pressure. Some nasal drainage. She does endorse history of sinusitis. There is no throat pain. No decrease in hearing. No dizziness or lightheadedness. Gait is steady. He denies chest pain, there is no dizziness, there is no nausea vomiting. Patient does have a primary care doctor. - Related Data Previous Rx's Medication Instructions Recorded Last Taken Type Butalb/Acetaminophen/Caffeine 1 cap PO Q6HR PRN #7 cap 04/17/15 07/28/16 Rx [Fioricet 50-300-40 mg CAP] Cyclobenzaprine HCl [Flexeril 5 MG 5 mg PO TID PRN #12 tab 07/20/16 07/28/16 Rx TAB] Azithromycin [Zithromax Z-MAIA] 250 mg PO DAILY #6 tablet 05/04/17 Unknown Rx Codeine Phosphate/Guaifenesin 5 ml PO QID PRN #120 ml 05/04/17 Unknown Rx [Guaifenesin-Codeine Syrup] Ibuprofen 800 mg PO TID PRN #30 tablet 05/04/17 Unknown Rx Oseltamivir [Tamiflu] 75 mg PO BID #10 cap 05/04/17 Unknown Rx hydroCHLOROthiazide [HCTZ] 25 mg PO QDAY 30 Days #30 tablet 07/11/17 Unknown Rx DOXYCYCLINE Hyclate [Vibramycin 100 mg PO Q12HR #14 capsule 09/16/17 Unknown Rx CAP] Ibuprofen [Motrin] 600 mg PO Q8H PRN #20 tablet 09/16/17 Unknown Rx amLODIPine 10 mg PO DAILY 30 Days #30 tab 09/16/17 Unknown Rx lisinopriL [Zestril TAB] 20 mg PO QDAY 30 Days #30 tablet 09/16/17 Unknown Rx traMADoL [Ultram] 50 mg PO Q6HR PRN #10 tablet 09/16/17 Unknown Rx Lisinopril [Zestril] 10 mg PO QDAY #30 tablet 11/11/17 Unknown Rx amLODIPine 10 mg PO DAILY #30 tab 11/11/17 Unknown Rx HYDROcodone/APAP 5-325 [[place] 1 each PO Q4HR PRN #12 tablet 06/21/18 Unknown Rx 5/325] Ibuprofen [Motrin] 600 mg PO Q8H PRN #20 tablet 06/21/18 Unknown Rx Amoxicillin/Potassium Clav 1 each PO BID 7 Days #14 tab 07/29/21 Unknown Rx [Augmentin 875-125 Tablet] amLODIPine 10 mg PO DAILY #30 tab 07/29/21 Unknown Rx predniSONE [Deltasone] 20 mg PO QDAY 5 Days #5 tab 07/29/21 Unknown Rx Allergies Allergy/AdvReac Type Severity Reaction Status Date / Time No Known Allergies Allergy Verified 07/29/21 19:43 ED Review of Systems ROS: Stated complaint: EAR ACHE AND BLOOD PRESSURE Other details as noted in HPI Constitutional: malaise. denies: chills, fever Eyes: denies: eye pain, eye discharge, vision change ENT: ear pain, congestion. denies: throat pain, dental pain, hearing loss, epistaxis Respiratory: denies: cough, shortness of breath, wheezing Cardiovascular: denies: chest pain, palpitations Endocrine: no symptoms reported Gastrointestinal: denies: abdominal pain, nausea, vomiting, diarrhea Genitourinary: denies: urgency, dysuria Musculoskeletal: denies: back pain, joint swelling, arthralgia Skin: denies: rash, lesions Neurological: denies: headache, weakness, numbness, paresthesias, confusion, vertigo Psychiatric: denies: anxiety, depression Hematological/Lymphatic: denies: easy bleeding, easy bruising ED Past Medical Hx - Past Medical History Previous Medical History?: Yes Hx Hypertension: Yes - Surgical History Past Surgical History?: No - Social History Smoking Status: Never Smoker Substance Use Type: None - Medications Home Medications: Home Medications Medication Instructions Recorded Confirmed Last Taken Type Butalb/Acetaminophen/Caffeine 1 cap PO Q6HR PRN #7 cap 04/17/15 07/28/16 07/28/16 Rx [Fioricet 50-300-40 mg CAP] Cyclobenzaprine HCl [Flexeril 5 MG 5 mg PO TID PRN #12 tab 07/20/16 07/28/16 07/28/16 Rx TAB] Azithromycin [Zithromax Z-MAIA] 250 mg PO DAILY #6 tablet 05/04/17 Unknown Rx Codeine Phosphate/Guaifenesin 5 ml PO QID PRN #120 ml 05/04/17 Unknown Rx [Guaifenesin-Codeine Syrup] Ibuprofen 800 mg PO TID PRN #30 tablet 05/04/17 Unknown Rx Oseltamivir [Tamiflu] 75 mg PO BID #10 cap 05/04/17 Unknown Rx hydroCHLOROthiazide [HCTZ] 25 mg PO QDAY 30 Days #30 tablet 07/11/17 Unknown Rx DOXYCYCLINE Hyclate [Vibramycin 100 mg PO Q12HR #14 capsule 09/16/17 Unknown Rx CAP] Ibuprofen [Motrin] 600 mg PO Q8H PRN #20 tablet 09/16/17 Unknown Rx amLODIPine 10 mg PO DAILY 30 Days #30 tab 09/16/17 Unknown Rx lisinopriL [Zestril TAB] 20 mg PO QDAY 30 Days #30 tablet 09/16/17 Unknown Rx traMADoL [Ultram] 50 mg PO Q6HR PRN #10 tablet 09/16/17 Unknown Rx Lisinopril [Zestril] 10 mg PO QDAY #30 tablet 11/11/17 Unknown Rx amLODIPine 10 mg PO DAILY #30 tab 11/11/17 Unknown Rx HYDROcodone/APAP 5-325 [[place] 1 each PO Q4HR PRN #12 tablet 06/21/18 Unknown Rx 5/325] Ibuprofen [Motrin] 600 mg PO Q8H PRN #20 tablet 06/21/18 Unknown Rx Amoxicillin/Potassium Clav 1 each PO BID 7 Days #14 tab 07/29/21 Unknown Rx [Augmentin 875-125 Tablet] amLODIPine 10 mg PO DAILY #30 tab 07/29/21 Unknown Rx predniSONE [Deltasone] 20 mg PO QDAY 5 Days #5 tab 07/29/21 Unknown Rx ED Physical Exam - General Limitations: No Limitations General appearance: alert, in no apparent distress - Head Head exam: Present: normocephalic, normal inspection - Eye Eye exam: Present: PERRL, EOMI. Absent: conjunctival injection, nystagmus Pupils: Present: normal accommodation - ENT ENT exam: Present: mucous membranes moist, normal external ear exam, other (Bilateral frontal sinus pain to deep palpation. No erythema no swelling. Turb inates are boggy with clear drainage.) - Expanded ENT Exam Expanded TM/Canal exam: Erythema: Left TM, Loss of Landmarks: Left TM, Canal Tenderness: Left TM Mouth exam: Present: normal external inspection Throat exam: Negative: tonsillar erythema, tonsillomegaly, tonsillar exudate, R peritonsillar mass, L peritonsillar mass - Neck Neck exam: Present: normal inspection, full ROM. Absent: tenderness, meningismus, lymphadenopathy, thyromegaly - Respiratory Respiratory exam: Present: normal lung sounds bilaterally. Absent: wheezes, stridor, chest wall tenderness - Cardiovascular Cardiovascular Exam: Present: regular rate, normal rhythm, normal heart sounds. Absent: systolic murmur, diastolic murmur, rubs, gallop - GI/Abdominal GI/Abdominal exam: Present: soft, normal bowel sounds. Absent: distended, tenderness, guarding, rebound, rigid, bruit, hernia - Rectal Rectal exam: Present: deferred - Extremities Exam Extremities exam: Present: normal inspection, full ROM, normal capillary refill. Absent: tenderness - Back Exam Back exam: Present: normal inspection, full ROM. Absent: CVA tenderness (R), CVA tenderness (L) - Neurological Exam Neurological exam: Present: alert, oriented X3, CN II-XII intact, normal gait, reflexes normal. Absent: motor sensory deficit - Expanded Neurological Exam Expanded Patient oriented to: Present: person, place, time Speech: Present: fluid speech Motor strength exam: RUE: 5, LUE: 5, RLE: 5, LLE: 5 Best Eye Response ([place]): (4) open spontaneously Best Motor Response ([place]): (6) obeys commands Best Verbal Response ([place]): (5) oriented Almita Total: 15 - Psychiatric Psychiatric exam: Present: normal affect, normal mood - Skin Skin exam: Present: warm, dry, intact, normal color. Absent: rash ED Course Vital Signs 07/29/21 19:42 Temperature 98.7 F Pulse Rate 70 Respiratory 18 Rate Blood Pressure 190/125 [Left] O2 Sat by Pulse 98 Oximetry ED Medical Decision Making - Medical Decision Making Pain is improved, BP is improved. Patient advised to take blood pressure medications as prescribed by primary care doctor. Take all medications as directed. Follow-up primary care doctor in 2 to 3 days. Return to emergency department should symptoms worsen. Patient verbalizes agreement and understanding with discharge plan. Patient is currently alert oriented x3 patient amatory with steady gait there is no chest pain no shortness of breath no dizziness no lightheadedness no fever no chills. Patient DC'd home in stable condition at this time. Critical care attestation.: If time is entered above; I have spent that time in minutes in the direct care of this critically ill patient, excluding procedure time. ED Disposition Clinical Impression: Sinusitis Qualifiers: Sinusitis location: maxillary Chronicity: acute Recurrence: non-recurrent Qualified Code(s): J01.00 - Acute maxillary sinusitis, unspecified Disposition: HOME / SELF CARE / HOMELESS Is pt being admited?: No Does the pt Need Aspirin: No Condition: Stable Instructions: Sinusitis, Adult, Amlodipine tablets Additional Instructions: Take medications as prescribed, follow-up with your doctor in 2 to 3 days. Return to emergency department should symptoms worsen. Prescriptions: amLODIPine 10 mg PO DAILY #30 tab Amoxicillin/Potassium Clav [Augmentin 875-125 Tablet] 1 each PO BID 7 Days #14 tab predniSONE [Deltasone] 20 mg PO QDAY 5 Days #5 tab Referrals: FELI HENRIQUEZ MD [Staff Physician] - 3-5 Days Forms: Work/School Release Form(ED) Time of Disposition: 22:20
== END 2021-07-29 22:29 | disposition home or self-care (01) ==
LOC: ED 18:07
DX: J32.9 Chronic sinusitis, unspecified (principal); I10 Essential (primary) hypertension
CPT/HCPCS: 99282

== ENCOUNTER 2021-08-19 16:07 | Emergency (ER) | payer SELFPAY ==
[2021-08-19] MEDS ORDERED: HYDROcodone/ACETAMINOPHEN 7.5-325MG TAB PO ONE (16:21)
[2021-08-19] MEDS ORDERED: IBUPROFEN 600 MG TAB PO ONE (16:21)
[2021-08-19] MEDS ORDERED: ONDANSETRON 4 MG ODT TAB PO ONE (16:21)
--- NOTE | 2021-08-19 16:48 | Emergency Department Report ---
ED Fall HPI - General Chief Complaint: Extremity Injury, Lower Stated Complaint: LEG/KNEE PAIN Source: patient Mode of arrival: Ambulatory - History of Present Illness Initial Comments: Patient is a 45-year-old -Citizen Of The [place] male with a history of hypertension who presents to the ED with complaint of acute onset persistent right knee pain after he slipped and fell 2 days ago. Patient states that the pain has been constant and persistent and that he is unable to bear weight on the right leg because of worsening right knee pain. Patient denies head or neck injuries, dizziness, syncope, low back pain, hip pain, chest pain, shortness of breath, nausea and vomiting, loss of consciousness, seizures, numbness and tingling or weakness of lower extremities bilaterally. 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 denies: headache, neck pain, numbness, weakness, chest paint, shortness of breath, abdominal pain, hematuria, unable to walk, lightheaded, vertigo, confusion - Related Data Previous Rx's Medication Instructions Recorded Last Taken Type Butalb/Acetaminophen/Caffeine 1 cap PO Q6HR PRN #7 cap 04/17/15 07/28/16 Rx [Fioricet 50-300-40 mg CAP] Cyclobenzaprine HCl [Flexeril 5 MG 5 mg PO TID PRN #12 tab 07/20/16 07/28/16 Rx TAB] Azithromycin [Zithromax Z-MAIA] 250 mg PO DAILY #6 tablet 05/04/17 Unknown Rx Codeine Phosphate/Guaifenesin 5 ml PO QID PRN #120 ml 05/04/17 Unknown Rx [Guaifenesin-Codeine Syrup] Ibuprofen 800 mg PO TID PRN #30 tablet 05/04/17 Unknown Rx Oseltamivir [Tamiflu] 75 mg PO BID #10 cap 05/04/17 Unknown Rx hydroCHLOROthiazide [HCTZ] 25 mg PO QDAY 30 Days #30 tablet 07/11/17 Unknown Rx DOXYCYCLINE Hyclate [Vibramycin 100 mg PO Q12HR #14 capsule 09/16/17 Unknown Rx CAP] Ibuprofen [Motrin] 600 mg PO Q8H PRN #20 tablet 09/16/17 Unknown Rx amLODIPine 10 mg PO DAILY 30 Days #30 tab 09/16/17 Unknown Rx lisinopriL [Zestril TAB] 20 mg PO QDAY 30 Days #30 tablet 09/16/17 Unknown Rx traMADoL [Ultram] 50 mg PO Q6HR PRN #10 tablet 09/16/17 Unknown Rx Lisinopril [Zestril] 10 mg PO QDAY #30 tablet 11/11/17 Unknown Rx amLODIPine 10 mg PO DAILY #30 tab 11/11/17 Unknown Rx HYDROcodone/APAP 5-325 [Sharon 1 each PO Q4HR PRN #12 tablet 06/21/18 Unknown Rx 5/325] Ibuprofen [Motrin] 600 mg PO Q8H PRN #20 tablet 06/21/18 Unknown Rx Amoxicillin/Potassium Clav 1 each PO BID 7 Days #14 tab 07/29/21 Unknown Rx [Augmentin 875-125 Tablet] amLODIPine 10 mg PO DAILY #30 tab 07/29/21 Unknown Rx predniSONE [Deltasone] 20 mg PO QDAY 5 Days #5 tab 07/29/21 Unknown Rx Ibuprofen [Motrin] 800 mg PO Q8HR PRN #30 tablet 08/19/21 Unknown Rx methOCARBAMOL [Robaxin TAB] 750 mg PO Q8H PRN #30 tab 08/19/21 Unknown Rx Allergies Allergy/AdvReac Type Severity Reaction Status Date / Time lisinopril Allergy Unknown Verified 08/19/21 16:12 ED Review of Systems ROS: Stated complaint: LEG/KNEE PAIN Other details as noted in HPI Constitutional: denies: chills, fever Eyes: denies: eye pain, eye discharge, vision change ENT: denies: ear pain, throat pain Respiratory: denies: cough, shortness of breath, wheezing Cardiovascular: denies: chest pain, palpitations Endocrine: no symptoms reported Gastrointestinal: denies: abdominal pain, nausea, diarrhea Genitourinary: denies: urgency, dysuria Musculoskeletal: arthralgia (Right knee pain). denies: back pain, joint swelling Skin: denies: rash, lesions Neurological: denies: headache, weakness, paresthesias Psychiatric: denies: anxiety, depression Hematological/Lymphatic: denies: easy bleeding, easy bruising ED Past Medical Hx - Past Medical History Hx Hypertension: Yes - Social History Smoking Status: Never Smoker Substance Use Type: None - Medications Home Medications: Home Medications Medication Instructions Recorded Confirmed Last Taken Type Butalb/Acetaminophen/Caffeine 1 cap PO Q6HR PRN #7 cap 04/17/15 07/28/16 07/28/16 Rx [Fioricet 50-300-40 mg CAP] Cyclobenzaprine HCl [Flexeril 5 MG 5 mg PO TID PRN #12 tab 07/20/16 07/28/16 07/28/16 Rx TAB] Azithromycin [Zithromax Z-MAIA] 250 mg PO DAILY #6 tablet 05/04/17 Unknown Rx Codeine Phosphate/Guaifenesin 5 ml PO QID PRN #120 ml 05/04/17 Unknown Rx [Guaifenesin-Codeine Syrup] Ibuprofen 800 mg PO TID PRN #30 tablet 05/04/17 Unknown Rx Oseltamivir [Tamiflu] 75 mg PO BID #10 cap 05/04/17 Unknown Rx hydroCHLOROthiazide [HCTZ] 25 mg PO QDAY 30 Days #30 tablet 07/11/17 Unknown Rx DOXYCYCLINE Hyclate [Vibramycin 100 mg PO Q12HR #14 capsule 09/16/17 Unknown Rx CAP] Ibuprofen [Motrin] 600 mg PO Q8H PRN #20 tablet 09/16/17 Unknown Rx amLODIPine 10 mg PO DAILY 30 Days #30 tab 09/16/17 Unknown Rx lisinopriL [Zestril TAB] 20 mg PO QDAY 30 Days #30 tablet 09/16/17 Unknown Rx traMADoL [Ultram] 50 mg PO Q6HR PRN #10 tablet 09/16/17 Unknown Rx Lisinopril [Zestril] 10 mg PO QDAY #30 tablet 11/11/17 Unknown Rx amLODIPine 10 mg PO DAILY #30 tab 11/11/17 Unknown Rx HYDROcodone/APAP 5-325 [Sharon 1 each PO Q4HR PRN #12 tablet 06/21/18 Unknown Rx 5/325] Ibuprofen [Motrin] 600 mg PO Q8H PRN #20 tablet 06/21/18 Unknown Rx Amoxicillin/Potassium Clav 1 each PO BID 7 Days #14 tab 07/29/21 Unknown Rx [Augmentin 875-125 Tablet] amLODIPine 10 mg PO DAILY #30 tab 07/29/21 Unknown Rx predniSONE [Deltasone] 20 mg PO QDAY 5 Days #5 tab 07/29/21 Unknown Rx Ibuprofen [Motrin] 800 mg PO Q8HR PRN #30 tablet 08/19/21 Unknown Rx methOCARBAMOL [Robaxin TAB] 750 mg PO Q8H PRN #30 tab 08/19/21 Unknown Rx ED Physical Exam - General Limitations: No Limitations General appearance: alert, in no apparent distress - Head Head exam: Present: atraumatic, normocephalic, normal inspection - Eye Eye exam: Present: normal appearance, PERRL, EOMI Pupils: Present: normal accommodation - ENT ENT exam: Present: normal exam, normal orophraynx, mucous membranes moist, TM's normal bilaterally, normal external ear exam - Neck Neck exam: Present: normal inspection, full ROM. Absent: tenderness - Respiratory Respiratory exam: Present: normal lung sounds bilaterally. Absent: respiratory distress, wheezes, stridor, chest wall tenderness, accessory muscle use, decreased breath sounds, prolonged expiratory - Cardiovascular Cardiovascular Exam: Present: normal rhythm, tachycardia, normal heart sounds. Absent: systolic murmur, diastolic murmur, rubs, gallop - GI/Abdominal GI/Abdominal exam: Present: soft, normal bowel sounds. Absent: tenderness, guarding, rebound, hyperactive bowel sounds, hypoactive bowel sounds, organomegaly - Extremities Exam Extremities exam: Present: normal inspection, full ROM, tenderness (Palpable right knee tenderness with limited range of motion due to pain), normal capillary refill. Absent: pedal edema, joint swelling, calf tenderness - Back Exam Back exam: Present: normal inspection, full ROM. Absent: tenderness, CVA tenderness (R), CVA tenderness (L), muscle spasm, paraspinal tenderness, vertebral tenderness - Neurological Exam Neurological exam: Present: alert, oriented X3, CN II-XII intact, normal gait, reflexes normal - Psychiatric Psychiatric exam: Present: normal affect, normal mood, anxious - Skin Skin exam: Present: warm, dry, intact, normal color. Absent: rash ED Course Vital Signs 08/19/21 16:11 Temperature 98.5 F Pulse Rate 120 H Respiratory 20 Rate Blood Pressure 178/125 O2 Sat by Pulse 97 Oximetry ED Medical Decision Making - Radiology Data Radiology results: report reviewed, image reviewed [facility] [address] [place] [address] XRay Report Signed Patient: ODESSA PALMER MR#: [id number] : 1975 Acct:[id number] Age/Sex: 45 / M ADM Date: 08/19/21 Loc: ED Attending Dr: Ordering Physician: KATHERINE VERMA Date of Service: 08/19/21 Procedure(s): XR knee 3V RT Accession Number(s): [id number] cc: KATHERINE VERMA Fluoro Time In Minutes: Right knee-3 views INDICATION: Right knee pain. COMPARISON: None available. IMPRESSION: No acute osseous abnormality. Normal alignment. No significant DJD. Soft tissues are unremarkable. Signer Name: Raudel Vo MD Signed: 08/19/2021 4:53 PM Workstation Name: [id number] Transcribed By: Dictated By: Raudel Vo MD Electronically Authenticated By: Raudel Vo MD Signed Date/Time: 08/19/211652 DD/ 51 TD/TT: Print - Medical Decision Making This is a 45-year-old -Citizen Of [place] male with a history of hypertension who presents to the ED with complaint of acute onset persistent right knee pain after he slipped and fell 2 days ago. Patient states that the pain has been constant and persistent and that he is unable to bear weight on the right leg because of worsening right knee pain. In the ED, patient is alert and oriented x3 and is not in any distress but appears to be in pain, crying during the physical exam and during the triage. Patient was treated for pain in the ED. Right knee x-ray showed no acute fractures or subluxations. The patient right knee was splinted with Wolfgang wrap and the patient fitted with crutches. On reevaluation, patient pain is well controlled medication, patient is neurovascularly intact after the splint application. Patient was discharged home on pain medications and advised to follow-up with his primary care physician in 7 to 10 days for reevaluation. Patient is advised return to the ED immediately if symptoms get worse. - Differential Diagnosis Knee fracture; knee sprain; knee contusion; muscle strain of leg Critical care attestation.: If time is entered above; I have spent that time in minutes in the direct care of this critically ill patient, excluding procedure time. ED Disposition Clinical Impression: Sprain of right knee/leg Qualifiers: Encounter type: initial encounter Qualified Code(s): S83.91XA - Sprain of unspecified site of right knee, initial encounter Contusion of right knee and lower leg Qualifiers: Encounter type: initial encounter Qualified Code(s): S80.01XA - Contusion of right knee, initial encounter; S80.11XA - Contusion of right lower leg, initial encounter Disposition: HOME / SELF CARE / HOMELESS Is pt being admited?: No Does the pt Need Aspirin: No Condition: Stable Instructions: Knee Sprain, Adult, [id number], Contusion, [id number] Additional Instructions: Right knee x-ray showed no acute fractures or subluxations. Your injuries are likely musculoskeletal following the fall injury. Therefore take medications as needed for pain, drink plenty of fluids and follow-up with your primary care physician in 7 to 10 days for reevaluation. Return to the ED immediately if symptoms get worse. Prescriptions: Ibuprofen [Motrin] 800 mg PO Q8HR PRN #30 tablet PRN Reason: Pain , Severe (7-10) methOCARBAMOL [Robaxin TAB] 750 mg PO Q8H PRN #30 tab PRN Reason: Muscle Spasm Referrals: [facility] [Provider Group] - 7-10 days Forms: Work/School Release Form(ED) Time of Disposition: 18:02 Print Language: URDU
--- NOTE | 2021-08-19 16:57 | XRay Report ---
Right knee-3 views INDICATION: Right knee pain. COMPARISON: None available. IMPRESSION: No acute osseous abnormality. Normal alignment. No significant DJD. Soft tissues are u nremarkable. Signer Name: Raudel Vo MD Signed: 08/19/2021 4:53 PM Workstation Name: [id number]
[2021-08-19 19:12] VITALS: BP 147/87
== END 2021-08-19 19:14 | disposition home or self-care (01) ==
LOC: ED 16:07
DX: S80.01XA Contusion of right knee, initial encounter (principal); W19.XXXA Unspecified fall, initial encounter; Y93.89 Activity, other specified; Y92.89 Other specified places as the place of occurrence of the external cause; Y99.8 Other external cause status
CPT/HCPCS: 99283; J3490; Q0162

== ENCOUNTER 2021-11-24 16:56 | Emergency (ER) | payer SELFPAY ==
--- NOTE | 2021-11-24 17:48 | Emergency Department Report ---
ED General Adult HPI - General Chief complaint: Upper Respiratory Infection Stated complaint: BLOOD PRESSURE/CHILLS PUI?: Yes Time Seen by Provider: 11/24/21 17:45 Source: patient Mode of arrival: Ambulatory Limitations: No Limitations - History of Present Illness Initial comments: Pt reports he has been experiencing chills since yesterday with mild body pain. Pt reports he is out of his BP meds and is requesting refills. -: Gradual Severity scale (0 -10): 4 Consistency: intermittent Improves with: none Associated Symptoms: denies other symptoms, diaphoresis, fever/chills. denies: confusion, chest pain, cough, headaches, loss of appetite, malaise, nausea/vomiting, rash, seizure, shortness of breath, syncope, weakness Treatments Prior to Arrival: none - Related Data Previous Rx's Medication Instructions Recorded Last Taken Type Butalb/Acetaminophen/Caffeine 1 cap PO Q6HR PRN #7 cap 04/17/15 07/28/16 Rx [Fioricet 50-300-40 mg CAP] Cyclobenzaprine HCl [Flexeril 5 MG 5 mg PO TID PRN #12 tab 07/20/16 07/28/16 Rx TAB] Azithromycin [Zithromax Z-MAIA] 250 mg PO DAILY #6 tablet 05/04/17 Unknown Rx Codeine Phosphate/Guaifenesin 5 ml PO QID PRN #120 ml 05/04/17 Unknown Rx [Guaifenesin-Codeine Syrup] Ibuprofen 800 mg PO TID PRN #30 tablet 05/04/17 Unknown Rx Oseltamivir [Tamiflu] 75 mg PO BID #10 cap 05/04/17 Unknown Rx hydroCHLOROthiazide [HCTZ] 25 mg PO QDAY 30 Days #30 tablet 07/11/17 Unknown Rx DOXYCYCLINE Hyclate [Vibramycin 100 mg PO Q12HR #14 capsule 09/16/17 Unknown Rx CAP] Ibuprofen [Motrin] 600 mg PO Q8H PRN #20 tablet 09/16/17 Unknown Rx lisinopriL [Zestril TAB] 20 mg PO QDAY 30 Days #30 tablet 09/16/17 Unknown Rx traMADoL [Ultram] 50 mg PO Q6HR PRN #10 tablet 09/16/17 Unknown Rx Lisinopril [Zestril] 10 mg PO QDAY #30 tablet 11/11/17 Unknown Rx amLODIPine 10 mg PO DAILY #30 tab 11/11/17 Unknown Rx HYDROcodone/APAP 5-325 [Douglas 1 each PO Q4HR PRN #12 tablet 06/21/18 Unknown Rx 5/325] Ibuprofen [Motrin] 600 mg PO Q8H PRN #20 tablet 06/21/18 Unknown Rx Amoxicillin/Potassium Clav 1 each PO BID 7 Days #14 tab 07/29/21 Unknown Rx [Augmentin 875-125 Tablet] amLODIPine 10 mg PO DAILY #30 tab 07/29/21 Unknown Rx predniSONE [Deltasone] 20 mg PO QDAY 5 Days #5 tab 07/29/21 Unknown Rx Ibuprofen [Motrin] 800 mg PO Q8HR PRN #30 tablet 08/19/21 Unknown Rx methOCARBAMOL [Robaxin TAB] 750 mg PO Q8H PRN #30 tab 08/19/21 Unknown Rx amLODIPine 10 mg PO DAILY 30 Days #30 tab 11/25/21 Unknown Rx hydroCHLOROthiazide [HCTZ] 25 mg PO QDAY #30 tablet 11/25/21 Unknown Rx Allergies Allergy/AdvReac Type Severity Reaction Status Date / Time lisinopril Allergy Unknown Verified 08/19/21 16:12 ED Review of Systems ROS: Stated complaint: BLOOD PRESSURE/CHILLS Other details as noted in HPI Comment: All other systems reviewed and negative ED Past Medical Hx - Past Medical History Previous Medical History?: Yes Hx Hypertension: Yes - Surgical History Past Surgical History?: No - Family History Family history: no significant - Social History Smoking Status: Never Smoker Substance Use Type: None - Medications Home Medications: Home Medications Medication Instructions Recorded Confirmed Last Taken Type Butalb/Acetaminophen/Caffeine 1 cap PO Q6HR PRN #7 cap 04/17/15 07/28/16 07/28/16 Rx [Fioricet 50-300-40 mg CAP] Cyclobenzaprine HCl [Flexeril 5 MG 5 mg PO TID PRN #12 tab 07/20/16 07/28/16 07/28/16 Rx TAB] Azithromycin [Zithromax Z-MAIA] 250 mg PO DAILY #6 tablet 05/04/17 Unknown Rx Codeine Phosphate/Guaifenesin 5 ml PO QID PRN #120 ml 05/04/17 Unknown Rx [Guaifenesin-Codeine Syrup] Ibuprofen 800 mg PO TID PRN #30 tablet 05/04/17 Unknown Rx Oseltamivir [Tamiflu] 75 mg PO BID #10 cap 05/04/17 Unknown Rx hydroCHLOROthiazide [HCTZ] 25 mg PO QDAY 30 Days #30 tablet 07/11/17 Unknown Rx DOXYCYCLINE Hyclate [Vibramycin 100 mg PO Q12HR #14 capsule 09/16/17 Unknown Rx CAP] Ibuprofen [Motrin] 600 mg PO Q8H PRN #20 tablet 09/16/17 Unknown Rx lisinopriL [Zestril TAB] 20 mg PO QDAY 30 Days #30 tablet 09/16/17 Unknown Rx traMADoL [Ultram] 50 mg PO Q6HR PRN #10 tablet 09/16/17 Unknown Rx Lisinopril [Zestril] 10 mg PO QDAY #30 tablet 11/11/17 Unknown Rx amLODIPine 10 mg PO DAILY #30 tab 11/11/17 Unknown Rx HYDROcodone/APAP 5-325 [Douglas 1 each PO Q4HR PRN #12 tablet 06/21/18 Unknown Rx 5/325] Ibuprofen [Motrin] 600 mg PO Q8H PRN #20 tablet 06/21/18 Unknown Rx Amoxicillin/Potassium Clav 1 each PO BID 7 Days #14 tab 07/29/21 Unknown Rx [Augmentin 875-125 Tablet] amLODIPine 10 mg PO DAILY #30 tab 07/29/21 Unknown Rx predniSONE [Deltasone] 20 mg PO QDAY 5 Days #5 tab 07/29/21 Unknown Rx Ibuprofen [Motrin] 800 mg PO Q8HR PRN #30 tablet 08/19/21 Unknown Rx methOCARBAMOL [Robaxin TAB] 750 mg PO Q8H PRN #30 tab 08/19/21 Unknown Rx amLODIPine 10 mg PO DAILY 30 Days #30 tab 11/25/21 Unknown Rx hydroCHLOROthiazide [HCTZ] 25 mg PO QDAY #30 tablet 11/25/21 Unknown Rx ED Physical Exam - General Limitations: No Limitations General appearance: alert, in no apparent distress - Head Head exam: Present: atraumatic, normocephalic - Eye Eye exam: Present: normal appearance - ENT ENT exam: Present: mucous membranes moist - Neck Neck exam: Present: normal inspection - Respiratory Respiratory exam: Present: normal lung sounds bilaterally. Absent: respiratory distress - Cardiovascular Cardiovascular Exam: Present: regular rate, normal rhythm. Absent: systolic murmur, diastolic murmur, rubs, gallop - GI/Abdominal GI/Abdominal exam: Present: soft, normal bowel sounds - Rectal Rectal exam: Present: deferred - Extremities Exam Extremities exam: Present: normal inspection - Back Exam Back exam: Present: normal inspection - Neurological Exam Neurological exam: Present: alert, oriented X3 - Psychiatric Psychiatric exam: Present: normal affect, normal mood - Skin Skin exam: Present: warm, dry, intact, normal color. Absent: rash ED Course Vital Signs 11/24/21 11/24/21 17:41 21:10 Temperature 99.5 F Pulse Rate 71 65 Respiratory 18 18 Rate Blood Pressure 206/119 182/110 [Right] O2 Sat by Pulse 97 99 Oximetry - Reevaluation(s) Reevaluation #1: 11/25/21 16:01 to ER for eval ED Medical Decision Making - Lab Data Result diagrams: 11/24/21 21:37 11/24/21 21:37 Critical care attestation.: If time is entered above; I have spent that time in minutes in the direct care of this critically ill patient, excluding procedure time. ED Disposition Clinical Impression: Uncontrolled hypertension Disposition: 01 HOME / SELF CARE / HOMELESS Is pt being admited?: No Does the pt Need Aspirin: No Condition: Stable Instructions: Hypertension, Adult, [id number], Managing Your Hypertension, Hypertension (ED) Prescriptions: amLODIPine 10 mg PO DAILY 30 Days #30 tab hydroCHLOROthiazide [HCTZ] 25 mg PO QDAY #30 tablet
--- NOTE | 2021-11-24 18:49 | XRay Report ---
CHEST 2 VIEWS INDICATION / CLINICAL INFORMATION: fever. COMPARISON: 07/08/2016 FINDINGS: SUPPORT DEVICES: None. HEART / MEDIASTINUM: No significant abnormality. LUNGS / PLEURA: No significant pulmonary or pleural abnormality. No pneumothorax. ADDITIONAL FINDINGS: No significant additional findings. IMPRESSION: 1. No acute findings. Signer Name: Bharath Gee MD Signed: 11/24/2021 6:44 PM Workstation Name: [id number]
[2021-11-24 21:10] VITALS: BP 182/110
[2021-11-24 21:58] LABS: Hematocrit 42.3 % (35.5-45.6); Hemoglobin 14.5 gm/dl (11.8-15.2); Mean Corpuscular HGB Conc 34 % (32-34); Mean Corpuscular Volume 90 fl (84-94); Platelet Count 151 K/mm3 (140-440); Red Blood Count 4.71 M/mm3 (3.65-5.03); Red Cell Distribution Width 14.2 % (13.2-15.2)
[2021-11-24 22:13] LABS: Alanine Aminotransferase 24 units/L (7-56); Albumin 4.1 g/dL (3.9-5); BUN/Creatinine Ratio 9; Blood Urea Nitrogen 15 mg/dL (9-20); Calcium 8.8 mg/dL (8.4-10.2); Hemolysis Index 4
[2021-11-25] MEDS ORDERED: POTASSIUM CHLORIDE ER 20 MEQ TAB PO ONE (03:11)
[2021-11-25] MEDS ORDERED: amLODIPine 5 MG TAB PO ONE (03:13)
[2021-11-25] MEDS ORDERED: cloNIDine 0.2 MG TAB PO ONE (03:13)
--- NOTE | 2021-11-25 03:16 | Emergency Department Report ---
ED Dizziness HPI - General Chief Complaint: Dizziness Stated Complaint: BLOOD PRESSURE/CHILLS Time Seen by Provider: 11/24/21 17:45 Source: patient Mode of arrival: Ambulatory Limitations: No Limitations - History of Present Illness Initial Comments: 46-year-old male history of hypertension presents to the emergency department with chills and elevated blood pressure. Patient reports woke up with chills today, generalized myalgias, supposed to be taking amlodipine which has not taken in a few days. No headache dizziness vision changes, no chest pain, no shortness of breath, no nausea vomiting abdominal pain. Patient initially presented to the emergency department with systolic blood pressure in the 200s over 100s -: Gradual Timing: gradual onset Description: other Improves With: nothing Worsens With: nothing Associated Symptoms: fever/chills. denies: confusion, seizure, shortness of breath, syncope, weakness - Related Data Previous Rx's Medication Instructions Recorded Last Taken Type Butalb/Acetaminophen/Caffeine 1 cap PO Q6HR PRN #7 cap 04/17/15 07/28/16 Rx [Fioricet 50-300-40 mg CAP] Cyclobenzaprine HCl [Flexeril 5 MG 5 mg PO TID PRN #12 tab 07/20/16 07/28/16 Rx TAB] Azithromycin [Zithromax Z-MAIA] 250 mg PO DAILY #6 tablet 05/04/17 Unknown Rx Codeine Phosphate/Guaifenesin 5 ml PO QID PRN #120 ml 05/04/17 Unknown Rx [Guaifenesin-Codeine Syrup] Ibuprofen 800 mg PO TID PRN #30 tablet 05/04/17 Unknown Rx Oseltamivir [Tamiflu] 75 mg PO BID #10 cap 05/04/17 Unknown Rx hydroCHLOROthiazide [HCTZ] 25 mg PO QDAY 30 Days #30 tablet 07/11/17 Unknown Rx DOXYCYCLINE Hyclate [Vibramycin 100 mg PO Q12HR #14 capsule 09/16/17 Unknown Rx CAP] Ibuprofen [Motrin] 600 mg PO Q8H PRN #20 tablet 09/16/17 Unknown Rx lisinopriL [Zestril TAB] 20 mg PO QDAY 30 Days #30 tablet 09/16/17 Unknown Rx traMADoL [Ultram] 50 mg PO Q6HR PRN #10 tablet 09/16/17 Unknown Rx Lisinopril [Zestril] 10 mg PO QDAY #30 tablet 11/11/17 Unknown Rx amLODIPine 10 mg PO DAILY #30 tab 11/11/17 Unknown Rx HYDROcodone/APAP 5-325 [[place] 1 each PO Q4HR PRN #12 tablet 06/21/18 Unknown Rx 5/325] Ibuprofen [Motrin] 600 mg PO Q8H PRN #20 tablet 06/21/18 Unknown Rx Amoxicillin/Potassium Clav 1 each PO BID 7 Days #14 tab 07/29/21 Unknown Rx [Augmentin 875-125 Tablet] amLODIPine 10 mg PO DAILY #30 tab 07/29/21 Unknown Rx predniSONE [Deltasone] 20 mg PO QDAY 5 Days #5 tab 07/29/21 Unknown Rx Ibuprofen [Motrin] 800 mg PO Q8HR PRN #30 tablet 08/19/21 Unknown Rx methOCARBAMOL [Robaxin TAB] 750 mg PO Q8H PRN #30 tab 08/19/21 Unknown Rx amLODIPine 10 mg PO DAILY 30 Days #30 tab 11/25/21 Unknown Rx hydroCHLOROthiazide [HCTZ] 25 mg PO QDAY #30 tablet 11/25/21 Unknown Rx Allergies Allergy/AdvReac Type Severity Reaction Status Date / Time lisinopril Allergy Unknown Verified 08/19/21 16:12 ED Review of Systems ROS: Stated complaint: BLOOD PRESSURE/CHILLS Other details as noted in HPI Comment: All other systems reviewed and negative Constitutional: chills Eyes: as per HPI ENT: denies: ear pain, dental pain Respiratory: denies: cough, orthopnea, shortness of breath, SOB with exertion Cardiovascular: denies: chest pain, palpitations, dyspnea on exertion Endocrine: excessive sweating Gastrointestinal: denies: abdominal pain, nausea Musculoskeletal: denies: back pain, joint swelling Skin: denies: change in color Neurological: denies: headache, weakness ED Past Medical Hx - Past Medical History Previous Medical History?: Yes Hx Hypertension: Yes - Surgical History Past Surgical History?: No - Social History Smoking Status: Never Smoker Substance Use Type: None - Medications Home Medications: Home Medications Medication Instructions Recorded Confirmed Last Taken Type Butalb/Acetaminophen/Caffeine 1 cap PO Q6HR PRN #7 cap 04/17/15 07/28/16 07/28/16 Rx [Fioricet 50-300-40 mg CAP] Cyclobenzaprine HCl [Flexeril 5 MG 5 mg PO TID PRN #12 tab 07/20/16 07/28/16 07/28/16 Rx TAB] Azithromycin [Zithromax Z-MAIA] 250 mg PO DAILY #6 tablet 05/04/17 Unknown Rx Codeine Phosphate/Guaifenesin 5 ml PO QID PRN #120 ml 05/04/17 Unknown Rx [Guaifenesin-Codeine Syrup] Ibuprofen 800 mg PO TID PRN #30 tablet 05/04/17 Unknown Rx Oseltamivir [Tamiflu] 75 mg PO BID #10 cap 05/04/17 Unknown Rx hydroCHLOROthiazide [HCTZ] 25 mg PO QDAY 30 Days #30 tablet 07/11/17 Unknown Rx DOXYCYCLINE Hyclate [Vibramycin 100 mg PO Q12HR #14 capsule 09/16/17 Unknown Rx CAP] Ibuprofen [Motrin] 600 mg PO Q8H PRN #20 tablet 09/16/17 Unknown Rx lisinopriL [Zestril TAB] 20 mg PO QDAY 30 Days #30 tablet 09/16/17 Unknown Rx traMADoL [Ultram] 50 mg PO Q6HR PRN #10 tablet 09/16/17 Unknown Rx Lisinopril [Zestril] 10 mg PO QDAY #30 tablet 11/11/17 Unknown Rx amLODIPine 10 mg PO DAILY #30 tab 11/11/17 Unknown Rx HYDROcodone/APAP 5-325 [[place] 1 each PO Q4HR PRN #12 tablet 06/21/18 Unknown Rx 5/325] Ibuprofen [Motrin] 600 mg PO Q8H PRN #20 tablet 06/21/18 Unknown Rx Amoxicillin/Potassium Clav 1 each PO BID 7 Days #14 tab 07/29/21 Unknown Rx [Augmentin 875-125 Tablet] amLODIPine 10 mg PO DAILY #30 tab 07/29/21 Unknown Rx predniSONE [Deltasone] 20 mg PO QDAY 5 Days #5 tab 07/29/21 Unknown Rx Ibuprofen [Motrin] 800 mg PO Q8HR PRN #30 tablet 08/19/21 Unknown Rx methOCARBAMOL [Robaxin TAB] 750 mg PO Q8H PRN #30 tab 08/19/21 Unknown Rx amLODIPine 10 mg PO DAILY 30 Days #30 tab 11/25/21 Unknown Rx hydroCHLOROthiazide [HCTZ] 25 mg PO QDAY #30 tablet 11/25/21 Unknown Rx ED Physical Exam - General Limitations: No Limitations General appearance: alert, in no apparent distress - Head Head exam: Present: atraumatic - Eye Eye exam: Present: normal appearance, PERRL Pupils: Present: normal accommodation - ENT ENT exam: Present: normal exam, normal orophraynx - Neck Neck exam: Present: normal inspection - Respiratory Respiratory exam: Present: normal lung sounds bilaterally - Cardiovascular Cardiovascular Exam: Present: regular rate, normal rhythm - GI/Abdominal GI/Abdominal exam: Present: soft. Absent: tenderness - Extremities Exam Extremities exam: Present: normal inspection, full ROM - Back Exam Back exam: Present: normal inspection, full ROM - Neurological Exam Neurological exam: Present: alert, oriented X3 - Psychiatric Psychiatric exam: Present: normal affect, normal mood - Skin Skin exam: Present: warm, dry, intact, normal color ED Course Vital Signs 11/24/21 11/24/21 17:41 21:10 Temperature 99.5 F Pulse Rate 71 65 Respiratory 18 18 Rate Blood Pressure 206/119 182/110 [Right] O2 Sat by Pulse 97 99 Oximetry ED Medical Decision Making - Lab Data Result diagrams: 11/24/21 21:37 11/24/21 21:37 - EKG Data -: EKG Interpreted by Id EKG shows normal: sinus rhythm Rate: normal - EKG Data Interpretation: other Normal sinus rhythm at 62, probable left atrial enlargement, OK interval 100, QRS duration 47, QT/QTc 444/449, abnormal EKG no acute STEMI for - Radiology Data Radiology results: report reviewed - Medical Decision Making 46-year-old male history of hypertension presenting with high blood pressure and chills. Labs are reassuring no signs of any endorgan damage, EKG no acute STEMI, chest x-ray is also reassuring no cardiomegaly infiltrates or effusions, Blood pressure addressed during ED course, patient is stable for discharge she would blood pressure medication refilled, recommend stay home handwashing social distancing mask wearing, most likely viral illness coupled with low-grade fever. Critical care attestation.: If time is entered above; I have spent that time in minutes in the direct care of this critically ill patient, excluding procedure time. ED Disposition Clinical Impression: Uncontrolled hypertension, Viral illness Disposition: 01 HOME / SELF CARE / HOMELESS Is pt being admited?: No Does the pt Need Aspirin: No Condition: Stable Instructions: Hypertension, Adult, [id number], Managing Your Hypertension, Hypertension (ED) Prescriptions: amLODIPine 10 mg PO DAILY 30 Days #30 tab hydroCHLOROthiazide [HCTZ] 25 mg PO QDAY #30 tablet Referrals: ROSALIE SANDS MD [Primary Care Provider] - 3-5 Days
--- NOTE | 2021-11-25 09:05 | Electrocardiograph Report ---
[facility] Test Date: 2021-11-24 Test Time: 17:48:35 Pat Name: ODESSA PALMER Department: Room: Gender: M [employer]: WU : 1975 Requested By: CHARLEE REYES Order Number: [id number] Reading MD: Luis Enrique Yang Measurements Intervals [place] Rate: 62 P: 100 AR: 148 QRS: 47 QRSD: 95 T: 36 QT: 444 QTc: 449 Interpretive Statements Sinus rhythm Probable left atrial enlargement Anterior infarct, possibly acute No previous ECG available for comparison Electronically Signed On 11-25-2021 9:05:10 EDT by Luis Enrique Yang
== END 2021-11-25 03:20 | disposition home or self-care (01) ==
LOC: ED 16:56
DX: I10 Essential (primary) hypertension (principal); B34.9 Viral infection, unspecified; Z88.8 Allergy status to other drugs, medicaments and biological substances
CPT/HCPCS: 36415; 71046; 80053; 84484; 85027; 93005; 99283

== ENCOUNTER 2021-12-09 03:41 | Emergency (ER) | payer SELFPAY ==
--- NOTE | 2021-12-09 09:15 | Emergency Department Report ---
ED General Adult HPI - General Chief complaint: Nausea/Vomiting/Diarrhea Stated complaint: STOMACH PAIN Time Seen by Provider: 12/09/21 08:48 Source: patient Mode of arrival: Ambulatory Limitations: No Limitations - History of Present Illness Initial comments: 46-year-old male with past medical history hypertension reports to the ER with 1 day of lower abdominal pain with nausea vomiting and no diarrhea. Patient reports his pain is 7 out of 10. Patient reports he is intended to take osmel jaime to help soothe the stomach. Patient reports decrease in appetite. Patient reports no other acute symptoms at this time. - Related Data Previous Rx's Medication Instructions Recorded Last Taken Type Butalb/Acetaminophen/Caffeine 1 cap PO Q6HR PRN #7 cap 04/17/15 07/28/16 Rx [Fioricet 50-300-40 mg CAP] Cyclobenzaprine HCl [Flexeril 5 MG 5 mg PO TID PRN #12 tab 07/20/16 07/28/16 Rx TAB] Azithromycin [Zithromax Z-MIAA] 250 mg PO DAILY #6 tablet 05/04/17 Unknown Rx Codeine Phosphate/Guaifenesin 5 ml PO QID PRN #120 ml 05/04/17 Unknown Rx [Guaifenesin-Codeine Syrup] Ibuprofen 800 mg PO TID PRN #30 tablet 05/04/17 Unknown Rx Oseltamivir [Tamiflu] 75 mg PO BID #10 cap 05/04/17 Unknown Rx hydroCHLOROthiazide [HCTZ] 25 mg PO QDAY 30 Days #30 tablet 07/11/17 Unknown Rx DOXYCYCLINE Hyclate [Vibramycin 100 mg PO Q12HR #14 capsule 09/16/17 Unknown Rx CAP] Ibuprofen [Motrin] 600 mg PO Q8H PRN #20 tablet 09/16/17 Unknown Rx lisinopriL [Zestril TAB] 20 mg PO QDAY 30 Days #30 tablet 09/16/17 Unknown Rx traMADoL [Ultram] 50 mg PO Q6HR PRN #10 tablet 09/16/17 Unknown Rx Lisinopril [Zestril] 10 mg PO QDAY #30 tablet 11/11/17 Unknown Rx amLODIPine 10 mg PO DAILY #30 tab 11/11/17 Unknown Rx HYDROcodone/APAP 5-325 [[place] 1 each PO Q4HR PRN #12 tablet 06/21/18 Unknown Rx 5/325] Ibuprofen [Motrin] 600 mg PO Q8H PRN #20 tablet 06/21/18 Unknown Rx Amoxicillin/Potassium Clav 1 each PO BID 7 Days #14 tab 07/29/21 Unknown Rx [Augmentin 875-125 Tablet] amLODIPine 10 mg PO DAILY #30 tab 07/29/21 Unknown Rx predniSONE [Deltasone] 20 mg PO QDAY 5 Days #5 tab 07/29/21 Unknown Rx Ibuprofen [Motrin] 800 mg PO Q8HR PRN #30 tablet 08/19/21 Unknown Rx methOCARBAMOL [Robaxin TAB] 750 mg PO Q8H PRN #30 tab 08/19/21 Unknown Rx amLODIPine 10 mg PO DAILY 30 Days #30 tab 11/25/21 Unknown Rx hydroCHLOROthiazide [HCTZ] 25 mg PO QDAY #30 tablet 11/25/21 Unknown Rx Acetaminophen/Codeine [Tylenol 1 tab PO Q6H PRN 2 Days #8 tab 12/09/21 Unknown Rx /Codeine # 3 tab] Ondansetron [Zofran Odt] 4 mg PO Q12H 4 Days #8 tab.rapdis 12/09/21 Unknown Rx amLODIPine 10 mg PO DAILY 30 Days #30 tab 12/09/21 Unknown Rx Allergies Allergy/AdvReac Type Severity Reaction Status Date / Time lisinopril Allergy Unknown Verified 08/19/21 16:12 ED Review of Systems ROS: Stated complaint: STOMACH PAIN Other details as noted in HPI Comment: All other systems reviewed and negative Gastrointestinal: abdominal pain, nausea, vomiting. denies: diarrhea, constipation ED Past Medical Hx - Past Medical History Previous Medical History?: Yes Hx Hypertension: Yes - Social History Smoking Status: Never Smoker Substance Use Type: None - Medications Home Medications: Home Medications Medication Instructions Recorded Confirmed Last Taken Type Butalb/Acetaminophen/Caffeine 1 cap PO Q6HR PRN #7 cap 04/17/15 07/28/16 07/28/16 Rx [Fioricet 50-300-40 mg CAP] Cyclobenzaprine HCl [Flexeril 5 MG 5 mg PO TID PRN #12 tab 07/20/16 07/28/16 07/28/16 Rx TAB] Azithromycin [Zithromax Z-MAIA] 250 mg PO DAILY #6 tablet 05/04/17 Unknown Rx Codeine Phosphate/Guaifenesin 5 ml PO QID PRN #120 ml 05/04/17 Unknown Rx [Guaifenesin-Codeine Syrup] Ibuprofen 800 mg PO TID PRN #30 tablet 05/04/17 Unknown Rx Oseltamivir [Tamiflu] 75 mg PO BID #10 cap 05/04/17 Unknown Rx hydroCHLOROthiazide [HCTZ] 25 mg PO QDAY 30 Days #30 tablet 07/11/17 Unknown Rx DOXYCYCLINE Hyclate [Vibramycin 100 mg PO Q12HR #14 capsule 09/16/17 Unknown Rx CAP] Ibuprofen [Motrin] 600 mg PO Q8H PRN #20 tablet 09/16/17 Unknown Rx lisinopriL [Zestril TAB] 20 mg PO QDAY 30 Days #30 tablet 09/16/17 Unknown Rx traMADoL [Ultram] 50 mg PO Q6HR PRN #10 tablet 09/16/17 Unknown Rx Lisinopril [Zestril] 10 mg PO QDAY #30 tablet 11/11/17 Unknown Rx amLODIPine 10 mg PO DAILY #30 tab 11/11/17 Unknown Rx HYDROcodone/APAP 5-325 [[place] 1 each PO Q4HR PRN #12 tablet 06/21/18 Unknown Rx 5/325] Ibuprofen [Motrin] 600 mg PO Q8H PRN #20 tablet 06/21/18 Unknown Rx Amoxicillin/Potassium Clav 1 each PO BID 7 Days #14 tab 07/29/21 Unknown Rx [Augmentin 875-125 Tablet] amLODIPine 10 mg PO DAILY #30 tab 07/29/21 Unknown Rx predniSONE [Deltasone] 20 mg PO QDAY 5 Days #5 tab 07/29/21 Unknown Rx Ibuprofen [Motrin] 800 mg PO Q8HR PRN #30 tablet 08/19/21 Unknown Rx methOCARBAMOL [Robaxin TAB] 750 mg PO Q8H PRN #30 tab 08/19/21 Unknown Rx amLODIPine 10 mg PO DAILY 30 Days #30 tab 11/25/21 Unknown Rx hydroCHLOROthiazide [HCTZ] 25 mg PO QDAY #30 tablet 11/25/21 Unknown Rx Acetaminophen/Codeine [Tylenol 1 tab PO Q6H PRN 2 Days #8 tab 12/09/21 Unknown Rx /Codeine # 3 tab] Ondansetron [Zofran Odt] 4 mg PO Q12H 4 Days #8 tab.rapdis 12/09/21 Unknown Rx amLODIPine 10 mg PO DAILY 30 Days #30 tab 12/09/21 Unknown Rx ED Physical Exam - General Limitations: No Limitations General appearance: alert, in no apparent distress - Head Head exam: Present: atraumatic, normocephalic - Eye Eye exam: Present: normal appearance - ENT ENT exam: Present: mucous membranes moist - Neck Neck exam: Present: normal inspection - Respiratory Respiratory exam: Present: normal lung sounds bilaterally. Absent: respiratory distress - Cardiovascular Cardiovascular Exam: Present: regular rate, normal rhythm. Absent: systolic murmur, diastolic murmur, rubs, gallop - GI/Abdominal GI/Abdominal exam: Present: soft, tenderness (Lower abdomen), normal bowel sounds. Absent: distended, guarding, rebound - Rectal Rectal exam: Present: deferred - Extremities Exam Extremities exam: Present: normal inspection - Back Exam Back exam: Present: normal inspection - Neurological Exam Neurological exam: Present: alert, oriented X3 - Psychiatric Psychiatric exam: Present: normal affect, normal mood - Skin Skin exam: Present: warm, dry, intact, normal color. Absent: rash ED Course Vital Signs 12/09/21 12/09/21 03:41 11:03 Temperature 98.6 F Pulse Rate 73 61 Respiratory 18 Rate Blood Pressure 159/108 Blood Pressure 157/113 [Right] O2 Sat by Pulse 97 Oximetry ED Medical Decision Making - Lab Data Result diagrams: 12/09/21 09:11 12/09/21 13:34 - Medical Decision Making 46-year-old male with past medical history hypertension reports to the ER with 1 day of lower abdominal pain with nausea vomiting and no diarrhea. Patient re ports his pain is 7 out of 10. Patient reports he is intended to take osmel jaime to help soothe the stomach. Patient reports decrease in appetite. Patient reports no other acute symptoms at this time. On physical exam patient does have lower abdominal tenderness, no guarding no rebound tenderness, no Daley sign noted, no other acute abdominal signs that are concerning for red flags noted. Patient reports a decrease in pain and reports feeling better after oral medication. And laboratory patient had a potassium of 2.9, patient was given 40 mEq of oral potassium on repeat potassium was 3.5. No other acute laboratory was noted. CBC indicates no infection currently. No imaging is considered at this time as patient has a benign abdominal exam with no concerns of any surgical intervention. No concerns of appendicitis or diverticulitis based off exam. Patient informed of lab results. Patient informed of plan of care to discharge home with follow-up with primary care. As well as patient informed that if symptoms are to get worse to report back to the ER for further evaluation. P atient. Care and verbalized understanding. Patient was also given a refill on his blood pressure medication. Informed to follow his primary care provider for further management. Vital Signs 12/09/21 12/09/21 03:41 11:03 Temperature 98.6 F Pulse Rate 73 61 Respiratory 18 Rate Blood Pressure 159/108 Blood Pressure 157/113 [Right] O2 Sat by Pulse 97 Oximetry Lab Results 12/09/21 12/09/21 12/09/21 Range/Units 09:11 09:11 11:14 WBC 7.3 (4.5-11.0) K/mm3 RBC 4.72 (3.65-5.03) M/mm3 Hgb 14.1 (11.8-15.2) gm/dl Hct 42.5 (35.5-45.6) % MCV 90 (84-94) fl MCH 30 (28-32) pg MCHC 33 (32-34) % RDW 14.1 (13.2-15.2) % Plt Count 235 (140-440) K/mm3 Lymph % (Auto) 31.6 (13.4-35.0) % Centre % (Auto) 10.7 H (0.0-7.3) % Eos % (Auto) 1.8 (0.0-4.3) % Baso % (Auto) 0.6 (0.0-1.8) % Lymph # (Auto) 2.3 (1.2-5.4) K/mm3 Centre # (Auto) 0.8 (0.0-0.8) K/mm3 Eos # (Auto) 0.1 (0.0-0.4) K/mm3 Baso # (Auto) 0.0 (0.0-0.1) K/mm3 Seg Neutrophils % 55.3 (40.0-70.0) % Seg Neutrophils # 4.0 (1.8-7.7) K/mm3 Sodium 141 (137-145) mmol/L Potassium 2.9 L* (3.6-5.0) mmol/L Chloride 105.9 (98-107) mmol/L Carbon Dioxide 25 (22-30) mmol/L Anion Gap 13 mmol/L BUN 17 (9-20) mg/dL Creatinine 1.4 H (0.8-1.3) mg/dL Estimated GFR > 60 ml/min BUN/Creatinine Ratio 12 % Glucose 128 H (75-100) mg/dL Calcium 9.1 (8.4-10.2) mg/dL Total Bilirubin 0.40 (0.1-1.2) mg/dL AST 20 (5-40) units/L ALT 21 (7-56) units/L Alkaline Phosphatase 85 (35-129) units/L Total Protein 6.6 (6.3-8.2) g/dL Albumin 4.1 (3.9-5) g/dL Albumin/Globulin Ratio 1.6 % Lipase 101 H (13-60) units/L Urine Color Yellow (Yellow) Urine Turbidity Clear (Clear) Urine pH 6.0 (5.0-7.0) Ur Specific [place] 1.030 (1.003-1.030) Urine Protein >2000 mg dl (Negative) mg/dL Urine Glucose (UA) Negative (Negative) mg/dL Urine Ketones Negative (Negative) mg/dL Urine Blood Negative (Negative) Urine Nitrite Negative (Negative) Urine Bilirubin 3+ (Negative) Urine Ictotest Positive (Negative) Urine Urobilinogen 0.0 (<2.0) mg/dL Ur Leukocyte Esterase 3+ (Negative) Urine WBC (Auto) < 1.0 (0.0-6.0) /HPF Urine RBC (Auto) 10.0 (0.0-6.0) /HPF U Epithel Cells (Auto) 5.0 (0-13.0) /HPF Urine Bacteria (Auto) 2+ (Negative) /HPF Ur Renal Epithelial Cell 4 /LPF Hyaline Casts 3+ /LPF Urine Mucus 3+ /HPF 12/09/21 Range/Units 13:34 WBC (4.5-11.0) K/mm3 RBC (3.65-5.03) M/mm3 Hgb (11.8-15.2) gm/dl Hct (35.5-45.6) % MCV (84-94) fl MCH (28-32) pg MCHC (32-34) % RDW (13.2-15.2) % Plt Count (140-440) K/mm3 Lymph % (Auto) (13.4-35.0) % Centre % (Auto) (0.0-7.3) % Eos % (Auto) (0.0-4.3) % Baso % (Auto) (0.0-1.8) % Lymph # (Auto) (1.2-5.4) K/mm3 Centre # (Auto) (0.0-0.8) K/mm3 Eos # (Auto) (0.0-0.4) K/mm3 Baso # (Auto) (0.0-0.1) K/mm3 Seg Neutrophils % (40.0-70.0) % Seg Neutrophils # (1.8-7.7) K/mm3 Sodium (137-145) mmol/L Potassium 3.5 L D (3.6-5.0) mmol/L Chloride (98-107) mmol/L Carbon Dioxide (22-30) mmol/L Anion Gap mmol/L BUN (9-20) mg/dL Creatinine (0.8-1.3) mg/dL Estimated GFR ml/min BUN/Creatinine Ratio % Glucose (75-100) mg/dL Calcium (8.4-10.2) mg/dL Total Bilirubin (0.1-1.2) mg/dL AST (5-40) units/L ALT (7-56) units/L Alkaline Phosphatase (35-129) units/L Total Protein (6.3-8.2) g/dL Albumin (3.9-5) g/dL Albumin/Globulin Ratio % Lipase (13-60) units/L Urine Color (Yellow) Urine Turbidity (Clear) Urine pH (5.0-7.0) Ur Specific [place] (1.003-1.030) Urine Protein (Negative) mg/dL Urine Glucose (UA) (Negative) mg/dL Urine Ketones (Negative) mg/dL Urine Blood (Negative) Urine Nitrite (Negative) Urine Bilirubin (Negative) Urine Ictotest (Negative) Urine Urobilinogen (<2.0) mg/dL Ur Leukocyte Esterase (Negative) Urine WBC (Auto) (0.0-6.0) /HPF Urine RBC (Auto) (0.0-6.0) /HPF U Epithel Cells (Auto) (0-13.0) /HPF Urine Bacteria (Auto) (Negative) /HPF Ur Renal Epithelial Cell /LPF Hyaline Casts /LPF Urine Mucus /HPF Critical care attestation.: If time is entered above; I have spent that time in minutes in the direct care of this critically ill patient, excluding procedure time. ED Disposition Clinical Impression: Nausea, Hypokalemia, Medication refill Abdominal pain Qualifiers: Abdominal location: lower abdomen, unspecified Qualified Code(s): R10.30 - Lower abdominal pain, unspecified HTN (hypertension) Qualifiers: Hypertension type: primary hypertension Qualified Code(s): I10 - Essential (primary) hypertension Disposition: 01 HOME / SELF CARE / HOMELESS Is pt being admited?: No Condition: Stable Instructions: Abdominal Pain, Adult, Hypokalemia, Nausea and Vomiting, Adult, Managing Your Hypertension, Hypertension, Adult, Hypertension (ED) Prescriptions: amLODIPine 10 mg PO DAILY 30 Days #30 tab Acetaminophen/Codeine [Tylenol /Codeine # 3 tab] 1 tab PO Q6H PRN 2 Days #8 tab PRN Reason: Pain , Severe (7-10) Ondansetron [Zofran Odt] 4 mg PO Q12H 4 Days #8 tab.rapdis Referrals: ROSALIE SANDS MD [Primary Care Provider] - 3-5 Days Forms: Work/School Release Form(ED)
[2021-12-09] MEDS ORDERED: amLODIPine 5 MG TAB PO ONE (09:21)
[2021-12-09 09:57] LABS: Alanine Aminotransferase 21 units/L (7-56); Albumin 4.1 g/dL (3.9-5); BUN/Creatinine Ratio 12; Blood Urea Nitrogen 17 mg/dL (9-20); Calcium 9.1 mg/dL (8.4-10.2); Hemolysis Index 2
[2021-12-09] MEDS ORDERED: POTASSIUM CHLORIDE ER 20 MEQ TAB PO ONE (10:01)
[2021-12-09] MEDS ORDERED: SODIUM CHLORIDE 0.9% 1000 ML 1,000 ML IV ONE (10:01)
[2021-12-09 10:21] LABS: Basophils % (Auto) 0.6 % (0.0-1.8); Eosinophils # (Auto) 0.1 K/mm3 (0.0-0.4); Eosinophils % (Auto) 1.8 % (0.0-4.3); Hematocrit 42.5 % (35.5-45.6); Hemoglobin 14.1 gm/dl (11.8-15.2); Lymphocytes # (Auto) 2.3 K/mm3 (1.2-5.4); Lymphocytes % (Auto) 31.6 % (13.4-35.0); Mean Corpuscular HGB Conc 33 % (32-34); Mean Corpuscular Volume 90 fl (84-94); Monocytes # (Auto) 0.8 K/mm3 (0.0-0.8); Monocytes % (Auto) 10.7 % (0.0-7.3); Platelet Count 235 K/mm3 (140-440); Red Blood Count 4.72 M/mm3 (3.65-5.03); Red Cell Distribution Width 14.1 % (13.2-15.2)
[2021-12-09 11:08] VITALS: BP 159/108
[2021-12-09] MEDS ORDERED: HYDROcodone/ACETAMINOPHEN 5-325 MG TAB PO ONE (13:18)
[2021-12-09 14:58] LABS: Bilirubin,Urine 3+ (Negative); Blood,Urine Negative (Negative); Color,Urine Yellow (Yellow); Protein,Urine >2000 mg dL mg/dL (Negative)
[2021-12-09 14:59] LABS: Renal Epithelial Cells,Urine 4 /LPF; WBC,Urine < 1.0 /HPF (0.0-6.0)
[2021-12-09 15:00] LABS: Bacteria,Urine 2+ /HPF (Negative); Hyaline Casts,Urine 3+ /LPF; Mucus,Urine 3+ /HPF
[2021-12-09 15:07] LABS: Ictotest,Urine Positive (Negative)
== END 2021-12-09 17:00 | disposition home or self-care (01) ==
LOC: ED 03:41
DX: I10 Essential (primary) hypertension (principal); E87.6 Hypokalemia; Z76.0 Encounter for issue of repeat prescription; R10.30 Lower abdominal pain, unspecified; Z88.8 Allergy status to other drugs, medicaments and biological substances; Z79.899 Other long term (current) drug therapy
CPT/HCPCS: 36415; 80053; 81001; 83690; 84132; 85025; 96360; 99283; J7030